=== PATIENT | male | born 1990 | race African-American/Black ===

== ENCOUNTER 2016-07-15 09:45 | Emergency (ER) | payer OTHER ==
[~2016-07-15] VITALS: Ht 180.3 cm; Wt 61.2 kg
[~2016-07-15 09:45] MED LIST: ALPR2TAB7 PO; CARI350T PO; HYDR-548 PO
--- NOTE | 2016-07-15 10:56 | NUR ---
Patient is resting comfortably on his own wheelchair, NAD, pending MD evaluation
--- NOTE | 2016-07-15 11:59 | NUR ---
Patient discharged to home in stable conditon. Written and verbal after care instructions given to patient. Patient verbalizes understanding of instructions.
== END 2016-07-15 12:03 | disposition home or self-care (01) ==
LOC: ER 09:45
DX: G89.29 Other chronic pain (principal); F41.9 Anxiety disorder, unspecified; F32.9 Major depressive disorder, single episode, unspecified; F10.20 Alcohol dependence, uncomplicated; Z93.3 Colostomy status; Z88.1 Allergy status to other antibiotic agents
CPT/HCPCS: A4663

== ENCOUNTER 2016-09-26 15:32 | Emergency (ER) | payer OTHER ==
[~2016-09-26] VITALS: Ht 180.3 cm; Wt 61.2 kg
--- NOTE | 2016-09-26 15:57 | NUR ---
AT BEDSIDE PERFORMING MSE
--- NOTE | 2016-09-26 16:01 | NUR ---
Patient discharged to home in stable conditon. Written and verbal after care instructions given. Prescription for SOMA provided per MD's order.Patient verbalizes understanding of instructions. No further questions or concerns noted prior on leaving the ED.
== END 2016-09-26 16:14 | disposition home or self-care (01) ==
LOC: ER 15:36
DX: Z76.0 Encounter for issue of repeat prescription (principal); F10.20 Alcohol dependence, uncomplicated; Z88.1 Allergy status to other antibiotic agents; Z93.3 Colostomy status
CPT/HCPCS: A4663

== ENCOUNTER 2017-04-08 15:12 | Inpatient (IN) | payer OTHER ==
[~2017-04-08] VITALS: Ht 180.3 cm; Wt 65.8 kg
[2017-04-08] MEDS ORDERED: GENTAMICIN SULFATE INJ 80 MG in IV DEXTROSE 5% 100 ML IV ONE (15:45)
[2017-04-08] MEDS ORDERED: IV NORMAL SALINE 1000 ML BAG IV ONE ×2 (15:45→17:45)
[2017-04-08] MEDS ORDERED: CEFTRIAXONE 1 G in IV DEXTROSE 5% 50 ML IV ONE (15:45)
[2017-04-08] MEDS ORDERED: DIPH50CA37 PO (16:30)
[2017-04-08] MEDS ORDERED: ZOLP10TA2 PO (16:30)
[2017-04-08] MEDS ORDERED: HYDR2TAB4 PO (16:30)
[2017-04-08 16:31] LABS: BASOPHILS % (AUTO) 0.1 % (0.0-2.0); HEMATOCRIT 34.2 % (36.7-47.1); HEMOGLOBIN 11.2 g/dL (12.5-16.3); LYMPHOCYTES # (AUTO) 1.1 K/uL (20.0-40.0); LYMPHOCYTES % (AUTO) 5.2 % (20.5-51.5); MEAN CORPUSCULAR HEMOGLOBIN 28.1 uug (23.8-33.4); MEAN CORPUSCULAR HGB CONC 33 g/dL (32.5-36.3); MEAN CORPUSCULAR VOLUME 86.1 fL (73.0-96.2); MONOCYTES # (AUTO) 2.5 K/uL (2.0-10.0); MONOCYTES % (AUTO) 11.7 % (0.0-11.0); NEUTROPHILS # (AUTO) 17.7 K/uL (1.8-8.9); PLATELET COUNT (AUTO) 591 K/uL (152-348); RED BLOOD CELL COUNT(AUTO) 3.98 MIL/uL (4.06-5.63); WHITE BLOOD COUNT (AUTO) 21.3 K/uL (3.6-10.2)
[2017-04-08 16:36] LABS: *BLOOD, URINE 2+ (NEGATIVE); *CLARITY,URINE CLOUDY (CLEAR); *COLOR,URINE AMBER (YELLOW); *KETONES,URINE TRACE (NEGATIVE); *PROTEIN,URINE 2+ (NEGATIVE); LEUKOCYTE ESTERASE ,URINE 3+ (NEGATIVE); NITRITE, URINE POSITIVE (NEGATIVE); UGLUCOSE NEGATIVE (NEGATIVE)
[2017-04-08 16:42] LABS: ALANINE AMINOTRANSFERASE 48 U/L (16-63); ALKALINE PHOSPHATASE 196 U/L (50-136); ASPARTATE AMINOTRANSFERASE 44 U/L (15-37); BILIRUBIN,DIRECT 0.4 mg/dL (0.0-0.2); BILIRUBIN,TOTAL 1.1 mg/dL (0.2-1.0); CARBON DIOXIDE 28 mmol/L (21-32); CHLORIDE 106 mmol/L (98-107); CREATININE 0.8 mg/dL (0.6-1.3); GLUCOSE 106 mg/dL (74-106); POTASSIUM 3.1 mmol/L (3.5-5.1); TOTAL PROTEIN, SERUM 8.2 g/dL (6.4-8.2); UREA NITROGEN, BLOOD 11 mg/dL (7-18)
[2017-04-08] MEDS ORDERED: GENTAMICIN SULFATE 80 MG/2 ML VIAL ONE (16:58)
[2017-04-08] MEDS ORDERED: CEFTRIAXONE 1 G VIAL ONE (16:58)
[2017-04-08] MEDS ORDERED: MORPHINE SULFATE 4 MG/1 ML DISP.SYRIN IV ONE (17:00)
[2017-04-08] MEDS ORDERED: MORPHINE SULFATE 4 MG/1 ML DISP.SYRIN ONE (17:08)
[2017-04-08 17:09] LABS: *BILIRUBIN,URIN 1+ (NEGATIVE)
[2017-04-08 17:12] LABS: BACTERIA,URINE MANY /HPF (NONE SEEN); MUCUS,URINE MODERATE /LPF (0-FEW); SQUAMOUS EPITHELIAL CELL,UR MODERATE /HPF (NONE SEEN); WBC,URINE 50-80 /HPF (0-3)
[2017-04-08 17:17] LABS: BAND % (MANUAL) 9 % (0-10); LYMPHOCYTES % (MANUAL) 8 % (20-40); MONOCYTES % (MANUAL) 12 % (2-10); NEUTROPHILS % (MANUAL) 71 % (42-75)
[2017-04-08] MEDS ORDERED: VANCOMYCIN IV 200 ML IV ONE (17:45)
[2017-04-08] MEDS ORDERED: ONDANSETRON 4 MG/2 ML VIAL IV PRN (17:45)
[2017-04-08] MEDS ORDERED: MEROPENEM 0.5 G in IV NORMAL SALINE 50 ML IV SCH (18:00)
[2017-04-08 18:18] VITALS: BP 109/61
[2017-04-08] MEDS ORDERED: IV NS 1000 ML 1,000 ML IV ONE (18:30)
[2017-04-08 19:00] VITALS: BP 107/32
[2017-04-08] MEDS ORDERED: MORPHINE SULFATE 2 MG/1 ML DISP.SYRIN IV PRN (20:30)
[2017-04-08] MEDS ORDERED: HYDROCODONE/APAP 10-325 MG TABLET PO PRN ×2 (20:45)
[2017-04-08] MEDS ORDERED: HYDROMORPHONE HCL 2 MG TABLET PO PRN (20:45)
[2017-04-08 21:09] LABS: ABG BASE EXCESS 2.9 mmol/L; ABG HCO3 25.3 mmol/L; ABG PCO2 30.7 mmHg (35.0-45.0); ABG PH 7.533 (7.350-7.450); ABG PO2 88.9 mmHg (75.0-100.0); ABG SITE LEFT BRACHIAL; ABG TOTAL HEMOGLOBIN 9.8 G/dL (13.5-18.0); COHb 1.7 % (0.5-1.5); O2Hb 95.3 % (94.0-97.0); VENT MODE ROOM AIR
[2017-04-08] MEDS: diphenhydrAMINE 50 MG CAPSULE PO PRN (21:15)
[2017-04-08] MEDS: MORPHINE SULFATE 4 MG/1 ML DISP.SYRIN IV PRN (21:15)
[2017-04-08] MEDS ORDERED: MEROPENEM 1 G in IV DEXTROSE 5% 50 ML IV SCH (22:00)
[2017-04-08] MEDS: MEROPENEM 0.5 G in IV NORMAL SALINE 50 ML IV SCH (22:18)
[2017-04-09] VITALS: BP 93/33
[2017-04-09] MEDS: CARISOPRODOL 350 MG TABLET PO SCH ×2 (00:18→04:23)
[2017-04-09] MEDS: ACETAMINOPHEN 325 MG TABLET PO PRN ×2 (00:25→23:42)
[2017-04-09] MEDS ORDERED: CARISOPRODOL 350 MG TABLET ONE ×2 (00:33→04:38)
[2017-04-09] MEDS: diphenhydrAMINE 50 MG CAPSULE PO PRN (03:27)
[2017-04-09] MEDS: MORPHINE SULFATE 4 MG/1 ML DISP.SYRIN IV PRN ×5 (03:27→22:18)
[2017-04-09] MEDS ORDERED: MORPHINE SULFATE 2 MG/1 ML DISP.SYRIN ONE (03:39)
[2017-04-09 04:00] VITALS: BP 95/31
[2017-04-09] MEDS: MEROPENEM 0.5 G in IV NORMAL SALINE 50 ML IV SCH ×3 (04:24→21:08)
[2017-04-09] MEDS: PANTOPRAZOLE SODIUM 40 MG VIAL IV SCH (09:36)
[2017-04-09 09:57] LABS: BASOPHILS % (AUTO) 0.1 % (0.0-2.0); EOSINOPHILS # (AUTO) 0.1 K/uL (0.0-0.7); EOSINOPHILS % (AUTO) 0.4 % (0.0-7.0); HEMOGLOBIN 8.5 g/dL (12.5-16.3); LYMPHOCYTES # (AUTO) 1.7 K/uL (20.0-40.0); LYMPHOCYTES % (AUTO) 8.8 % (20.5-51.5); MEAN CORPUSCULAR HGB CONC 33 g/dL (32.5-36.3); MEAN CORPUSCULAR VOLUME 85.5 fL (73.0-96.2); MONOCYTES # (AUTO) 2.2 K/uL (2.0-10.0); MONOCYTES % (AUTO) 11.7 % (0.0-11.0); NEUTROPHILS # (AUTO) 14.8 K/uL (1.8-8.9); PLATELET COUNT (AUTO) 438 K/uL (152-348); RED BLOOD CELL COUNT(AUTO) 3.04 MIL/uL (4.06-5.63); WHITE BLOOD COUNT (AUTO) 18.8 K/uL (3.6-10.2)
[2017-04-09 10:14] LABS: ALANINE AMINOTRANSFERASE 33 U/L (16-63); ALKALINE PHOSPHATASE 138 U/L (50-136); ASPARTATE AMINOTRANSFERASE 46 U/L (15-37); BILIRUBIN,TOTAL 0.7 mg/dL (0.2-1.0); CARBON DIOXIDE 27 mmol/L (21-32); CHLORIDE 111 mmol/L (98-107); CREATININE 0.4 mg/dL (0.6-1.3); GLUCOSE 94 mg/dL (74-106); POTASSIUM 3.6 mmol/L (3.5-5.1); TOTAL PROTEIN, SERUM 5.9 g/dL (6.4-8.2); UREA NITROGEN, BLOOD 10 mg/dL (7-18)
[2017-04-09 10:16] LABS: EOSINOPHILS % (MANUAL) 1 % (0-8); LYMPHOCYTES % (MANUAL) 10 % (20-40); MONOCYTES % (MANUAL) 10 % (2-10); NEUTROPHILS % (MANUAL) 79 % (42-75)
[2017-04-09] MEDS ORDERED: POTASSIUM CHLORIDE 20 MEQ TAB.PRT.SR PO ONE (10:30)
[2017-04-09] MEDS: POTASSIUM CHLORIDE 20 MEQ TAB.PRT.SR PO SCH ×2 (11:38→17:04)
[2017-04-09] MEDS: ALPRAZOLAM 0.5 MG TABLET PO PRN ×2 (12:37→18:58)
[2017-04-09 13:18] LABS: IRON, SERUM 6 ug/dL (50-175)
[2017-04-09 15:29] VITALS: BP 103/54
[2017-04-09 20:00] VITALS: BP 97/37
[2017-04-09 20:28] LABS: *OCCULT BLOOD STOOL POSITIVE (NEGATIVE)
[2017-04-09] MEDS: SODIUM HYPOCHLORITE 0.25% 480 ML BOTTLE TOP SCH (21:00)
[2017-04-09] MEDS: ZOLPIDEM 5 MG TABLET PO PRN (21:08)
[2017-04-09] MEDS: diphenhydrAMINE 50 MG/1 ML VIAL IV PRN (22:17)
[2017-04-09] MEDS ORDERED: diphenhydrAMINE 50 MG/1 ML VIAL ONE (22:21)
[2017-04-10] MEDS: MORPHINE SULFATE 4 MG/1 ML DISP.SYRIN IV PRN ×6 (01:46→23:21)
[2017-04-10 04:00] VITALS: BP 106/62
[2017-04-10] MEDS: MEROPENEM 0.5 G in IV NORMAL SALINE 50 ML IV SCH ×2 (04:06→12:33)
[2017-04-10] MEDS: diphenhydrAMINE 50 MG/1 ML VIAL IV PRN ×3 (06:11→20:04)
[2017-04-10] MEDS ORDERED: diphenhydrAMINE 50 MG/1 ML VIAL ONE (06:18)
[2017-04-10] MEDS ORDERED: MORPHINE SULFATE 2 MG/1 ML DISP.SYRIN ONE (06:19)
[2017-04-10 06:57] LABS: PHOSPHOROUS 1.9 mg/dL (2.5-4.9)
[2017-04-10 06:58] LABS: MAGNESIUM 1.4 mg/dL (1.8-2.4)
[2017-04-10 07:19] LABS: BASOPHILS % (AUTO) 0.2 % (0.0-2.0); EOSINOPHILS # (AUTO) 0.1 K/uL (0.0-0.7); EOSINOPHILS % (AUTO) 0.6 % (0.0-7.0); HEMATOCRIT 24.2 % (36.7-47.1); HEMOGLOBIN 7.8 g/dL (12.5-16.3); LYMPHOCYTES # (AUTO) 1.9 K/uL (20.0-40.0); LYMPHOCYTES % (AUTO) 12.9 % (20.5-51.5); MEAN CORPUSCULAR HEMOGLOBIN 27.7 uug (23.8-33.4); MEAN CORPUSCULAR HGB CONC 32 g/dL (32.5-36.3); MEAN CORPUSCULAR VOLUME 86.1 fL (73.0-96.2); MONOCYTES # (AUTO) 1.4 K/uL (2.0-10.0); MONOCYTES % (AUTO) 9.6 % (0.0-11.0); NEUTROPHILS % (AUTO) 76.7 % (38.5-71.5); PLATELET COUNT (AUTO) 416 K/uL (152-348); RED BLOOD CELL COUNT(AUTO) 2.81 MIL/uL (4.06-5.63); WHITE BLOOD COUNT (AUTO) 14.3 K/uL (3.6-10.2)
[2017-04-10] MEDS: SODIUM HYPOCHLORITE 0.25% 480 ML BOTTLE TOP SCH (09:00)
[2017-04-10] MEDS: PANTOPRAZOLE SODIUM 40 MG VIAL IV SCH (09:46)
[2017-04-10] MEDS: ALPRAZOLAM 0.5 MG TABLET PO PRN (09:47)
[2017-04-10] MEDS: CYCLOBENZAPRINE HCL 10 MG TABLET PO PRN (09:47)
[2017-04-10 11:20] VITALS: BP 96/33
[2017-04-10] MEDS: ACETAMINOPHEN 325 MG TABLET PO PRN ×2 (11:20→20:22)
[2017-04-10 15:22] VITALS: BP 105/28
[2017-04-10] MEDS ORDERED: NEUTRA PHOS PACKET PO ONE (15:45)
[2017-04-10] MEDS: MAGNESIUM SULFATE/D5W 100 ML IV SCH ×3 (16:55→22:52)
[2017-04-10] MEDS: HYDROMORPHONE HCL 2 MG TABLET PO PRN (17:33)
[2017-04-10] MEDS: ZOLPIDEM 5 MG TABLET PO PRN (20:06)
[2017-04-10] MEDS: CEFTRIAXONE 2 G in IV DEXTROSE 5% 100 ML IV SCH (20:22)
[2017-04-10 20:40] VITALS: BP 113/53
[2017-04-10] MEDS ORDERED: MAGNESIUM SULFATE/D5W 200 ML ONE (23:06)
[2017-04-11] MEDS: MAGNESIUM SULFATE/D5W 100 ML IV SCH (00:02)
[2017-04-11] MEDS: diphenhydrAMINE 50 MG/1 ML VIAL IV PRN ×3 (03:29→19:58)
[2017-04-11] MEDS: MORPHINE SULFATE 4 MG/1 ML DISP.SYRIN IV PRN ×6 (03:30→23:44)
[2017-04-11] MEDS ORDERED: MORPHINE SULFATE 4 MG/1 ML DISP.SYRIN ONE (03:35)
[2017-04-11] MEDS: PANTOPRAZOLE SODIUM 40 MG TABLET.DR PO SCH (06:34)
[2017-04-11 06:59] VITALS: BP 124/57
[2017-04-11] MEDS: ALPRAZOLAM 0.5 MG TABLET PO PRN ×2 (09:15→21:40)
[2017-04-11] MEDS: HYDROMORPHONE HCL 2 MG TABLET PO PRN ×2 (09:16→17:17)
[2017-04-11] MEDS: SODIUM HYPOCHLORITE 0.25% 480 ML BOTTLE TOP SCH (09:19)
[2017-04-11 11:30] LABS: BASOPHILS % (AUTO) 0.1 % (0.0-2.0); EOSINOPHILS # (AUTO) 0.1 K/uL (0.0-0.7); EOSINOPHILS % (AUTO) 1.3 % (0.0-7.0); HEMATOCRIT 25.2 % (36.7-47.1); HEMOGLOBIN 8.3 g/dL (12.5-16.3); LYMPHOCYTES # (AUTO) 1.6 K/uL (20.0-40.0); LYMPHOCYTES % (AUTO) 14.6 % (20.5-51.5); MEAN CORPUSCULAR HGB CONC 33 g/dL (32.5-36.3); MEAN CORPUSCULAR VOLUME 84.7 fL (73.0-96.2); MONOCYTES # (AUTO) 1.2 K/uL (2.0-10.0); MONOCYTES % (AUTO) 10.8 % (0.0-11.0); NEUTROPHILS # (AUTO) 8.2 K/uL (1.8-8.9); NEUTROPHILS % (AUTO) 73.2 % (38.5-71.5); PLATELET COUNT (AUTO) 449 K/uL (152-348); RED BLOOD CELL COUNT(AUTO) 2.97 MIL/uL (4.06-5.63); WHITE BLOOD COUNT (AUTO) 11.2 K/uL (3.6-10.2)
[2017-04-11 11:36] VITALS: BP 104/51
[2017-04-11 11:39] LABS: CARBON DIOXIDE 25 mmol/L (21-32); CHLORIDE 108 mmol/L (98-107); CREATININE 0.5 mg/dL (0.6-1.3); GLUCOSE 78 mg/dL (74-106); PHOSPHOROUS 2.4 mg/dL (2.5-4.9); UREA NITROGEN, BLOOD 5 mg/dL (7-18)
[2017-04-11] MEDS: CYCLOBENZAPRINE HCL 10 MG TABLET PO PRN ×2 (12:49→21:40)
[2017-04-11 16:00] VITALS: BP 107/30
[2017-04-11] MEDS ORDERED: NEUTRA PHOS PACKET PO ONE (16:30)
[2017-04-11] MEDS: CEFTRIAXONE 2 G in IV DEXTROSE 5% 100 ML IV SCH (19:44)
[2017-04-11 20:52] VITALS: BP 100/46
[2017-04-11] MEDS: ZOLPIDEM 5 MG TABLET PO PRN (21:41)
[2017-04-12] MEDS: diphenhydrAMINE 50 MG/1 ML VIAL IV PRN ×4 (02:17→20:15)
[2017-04-12] MEDS: MORPHINE SULFATE 4 MG/1 ML DISP.SYRIN IV PRN ×5 (03:55→20:16)
[2017-04-12] MEDS ORDERED: MORPHINE SULFATE 10 MG/1 ML DISP.SYRIN ONE (04:07)
[2017-04-12 04:46] VITALS: BP 116/45
[2017-04-12] MEDS: PANTOPRAZOLE SODIUM 40 MG TABLET.DR PO SCH (06:26)
[2017-04-12 07:29] LABS: CARBON DIOXIDE 28 mmol/L (21-32); CHLORIDE 102 mmol/L (98-107); CREATININE 0.5 mg/dL (0.6-1.3); GLUCOSE 93 mg/dL (74-106); PHOSPHOROUS 3.4 mg/dL (2.5-4.9); UREA NITROGEN, BLOOD 6 mg/dL (7-18)
[2017-04-12] MEDS: SODIUM HYPOCHLORITE 0.25% 480 ML BOTTLE TOP SCH (08:01)
[2017-04-12 11:01] VITALS: BP 116/54
[2017-04-12 13:33] LABS: BASOPHILS # (AUTO) 0.1 K/uL (0.0-8.0); BASOPHILS % (AUTO) 0.5 % (0.0-2.0); EOSINOPHILS # (AUTO) 0.2 K/uL (0.0-0.7); EOSINOPHILS % (AUTO) 1.6 % (0.0-7.0); HEMATOCRIT 25.7 % (36.7-47.1); HEMOGLOBIN 8.3 g/dL (12.5-16.3); LYMPHOCYTES % (AUTO) 19.4 % (20.5-51.5); MEAN CORPUSCULAR HEMOGLOBIN 27.7 uug (23.8-33.4); MEAN CORPUSCULAR HGB CONC 32 g/dL (32.5-36.3); MEAN CORPUSCULAR VOLUME 85.9 fL (73.0-96.2); MONOCYTES # (AUTO) 1.3 K/uL (2.0-10.0); MONOCYTES % (AUTO) 13.3 % (0.0-11.0); NEUTROPHILS # (AUTO) 6.6 K/uL (1.8-8.9); NEUTROPHILS % (AUTO) 65.2 % (38.5-71.5); PLATELET COUNT (AUTO) 576 K/uL (152-348); RED BLOOD CELL COUNT(AUTO) 2.99 MIL/uL (4.06-5.63); WHITE BLOOD COUNT (AUTO) 10.1 K/uL (3.6-10.2)
[2017-04-12] MEDS: ALPRAZOLAM 0.5 MG TABLET PO PRN (13:56)
[2017-04-12 14:06] LABS: EOSINOPHILS % (MANUAL) 4 % (0-8); LYMPHOCYTES % (MANUAL) 25 % (20-40); MONOCYTES % (MANUAL) 10 % (2-10); NEUTROPHILS % (MANUAL) 61 % (42-75)
[2017-04-12 15:08] VITALS: BP 113/51
[2017-04-12] MEDS: CYCLOBENZAPRINE HCL 10 MG TABLET PO PRN (18:58)
[2017-04-12 20:22] VITALS: BP 99/44
[2017-04-12] MEDS: CEFTRIAXONE 2 G in IV DEXTROSE 5% 100 ML IV SCH (20:27)
[2017-04-12] MEDS: ZOLPIDEM 5 MG TABLET PO PRN (21:28)
[2017-04-13] MEDS: MORPHINE SULFATE 4 MG/1 ML DISP.SYRIN IV PRN ×6 (00:08→21:31)
[2017-04-13 00:14] VITALS: BP 100/34
[2017-04-13] MEDS: diphenhydrAMINE 50 MG/1 ML VIAL IV PRN ×3 (02:12→14:01)
[2017-04-13 04:00] VITALS: BP 120/52
[2017-04-13] MEDS: PANTOPRAZOLE SODIUM 40 MG TABLET.DR PO SCH (06:34)
[2017-04-13 07:50] LABS: BASOPHILS % (AUTO) 0.3 % (0.0-2.0); EOSINOPHILS # (AUTO) 0.2 K/uL (0.0-0.7); EOSINOPHILS % (AUTO) 1.9 % (0.0-7.0); HEMATOCRIT 26.9 % (36.7-47.1); HEMOGLOBIN 8.9 g/dL (12.5-16.3); LYMPHOCYTES # (AUTO) 1.9 K/uL (20.0-40.0); MEAN CORPUSCULAR HEMOGLOBIN 28.3 uug (23.8-33.4); MEAN CORPUSCULAR HGB CONC 33 g/dL (32.5-36.3); MONOCYTES # (AUTO) 1.5 K/uL (2.0-10.0); MONOCYTES % (AUTO) 14.7 % (0.0-11.0); NEUTROPHILS # (AUTO) 6.7 K/uL (1.8-8.9); NEUTROPHILS % (AUTO) 65.1 % (38.5-71.5); PLATELET COUNT (AUTO) 613 K/uL (152-348); RED BLOOD CELL COUNT(AUTO) 3.16 MIL/uL (4.06-5.63); WHITE BLOOD COUNT (AUTO) 10.3 K/uL (3.6-10.2)
[2017-04-13 08:03] LABS: CARBON DIOXIDE 26 mmol/L (21-32); CHLORIDE 98 mmol/L (98-107); CREATININE 0.5 mg/dL (0.6-1.3); GLUCOSE 107 mg/dL (74-106); MAGNESIUM 1.8 mg/dL (1.8-2.4); PHOSPHOROUS 3.9 mg/dL (2.5-4.9); UREA NITROGEN, BLOOD 9 mg/dL (7-18)
[2017-04-13] MEDS: SODIUM HYPOCHLORITE 0.25% 480 ML BOTTLE TOP SCH (08:29)
[2017-04-13 09:11] LABS: EOSINOPHILS % (MANUAL) 3 % (0-8); LYMPHOCYTES % (MANUAL) 22 % (20-40); MONOCYTES % (MANUAL) 15 % (2-10); NEUTROPHILS % (MANUAL) 60 % (42-75)
[2017-04-13 11:08] VITALS: BP 112/59
[2017-04-13] MEDS ORDERED: CEFT2VIA14 IV (11:54)
[2017-04-13] MEDS ORDERED: MORPHINE SULFATE 4 MG/1 ML DISP.SYRIN IV STA (13:37)
[2017-04-13 15:16] VITALS: BP 102/42
[2017-04-13] MEDS: ALPRAZOLAM 0.5 MG TABLET PO PRN ×2 (15:30→22:48)
[2017-04-13 20:00] VITALS: BP 106/55
[2017-04-13] MEDS: CEFTRIAXONE 2 G in IV DEXTROSE 5% 100 ML IV SCH (21:30)
[2017-04-13] MEDS: ZOLPIDEM 5 MG TABLET PO PRN (21:53)
[2017-04-14] MEDS: MORPHINE SULFATE 4 MG/1 ML DISP.SYRIN IV PRN ×6 (01:25→21:22)
[2017-04-14] MEDS ORDERED: MORPHINE SULFATE 4 MG/1 ML DISP.SYRIN ONE (05:27)
[2017-04-14 05:40] VITALS: BP 108/54
[2017-04-14] MEDS: diphenhydrAMINE 50 MG/1 ML VIAL IV PRN ×4 (05:54→21:22)
[2017-04-14] MEDS: PANTOPRAZOLE SODIUM 40 MG TABLET.DR PO SCH (06:05)
[2017-04-14] MEDS: SODIUM HYPOCHLORITE 0.25% 480 ML BOTTLE TOP SCH (09:12)
[2017-04-14 11:34] VITALS: BP 128/80
[2017-04-14 12:04] VITALS: BP 112/50
[2017-04-14] MEDS: CYCLOBENZAPRINE HCL 10 MG TABLET PO PRN (15:30)
[2017-04-14] MEDS: ALPRAZOLAM 0.5 MG TABLET PO PRN (15:30)
[2017-04-14 16:10] VITALS: BP 99/46
[2017-04-14] MEDS: ACETAMINOPHEN 325 MG TABLET PO PRN (16:43)
[2017-04-14] MEDS: CEFTRIAXONE 2 G in IV DEXTROSE 5% 100 ML IV SCH (20:50)
[2017-04-14 20:54] VITALS: BP 129/54
[2017-04-14] MEDS: ZOLPIDEM 5 MG TABLET PO PRN (22:16)
[2017-04-15] MEDS: diphenhydrAMINE 50 MG/1 ML VIAL IV PRN ×6 (01:20→21:28)
[2017-04-15] MEDS: MORPHINE SULFATE 4 MG/1 ML DISP.SYRIN IV PRN ×6 (01:21→21:27)
[2017-04-15 04:00] VITALS: BP 102/48
[2017-04-15] MEDS ORDERED: MORPHINE SULFATE 4 MG/1 ML DISP.SYRIN ONE (05:48)
[2017-04-15] MEDS ORDERED: MORPHINE SULFATE 2 MG/1 ML DISP.SYRIN ONE (05:49)
[2017-04-15] MEDS: PANTOPRAZOLE SODIUM 40 MG TABLET.DR PO SCH (06:45)
[2017-04-15 07:09] LABS: BASOPHILS % (AUTO) 0.6 % (0.0-2.0); EOSINOPHILS # (AUTO) 0.4 K/uL (0.0-0.7); EOSINOPHILS % (AUTO) 5.5 % (0.0-7.0); HEMATOCRIT 25.8 % (36.7-47.1); HEMOGLOBIN 8.5 g/dL (12.5-16.3); LYMPHOCYTES % (AUTO) 25.5 % (20.5-51.5); MEAN CORPUSCULAR HEMOGLOBIN 28.2 uug (23.8-33.4); MEAN CORPUSCULAR HGB CONC 33 g/dL (32.5-36.3); MEAN CORPUSCULAR VOLUME 85.3 fL (73.0-96.2); MONOCYTES % (AUTO) 13.3 % (0.0-11.0); NEUTROPHILS # (AUTO) 4.2 K/uL (1.8-8.9); NEUTROPHILS % (AUTO) 55.1 % (38.5-71.5); PLATELET COUNT (AUTO) 776 K/uL (152-348); RED BLOOD CELL COUNT(AUTO) 3.02 MIL/uL (4.06-5.63); WHITE BLOOD COUNT (AUTO) 7.7 K/uL (3.6-10.2)
[2017-04-15 07:33] LABS: ALANINE AMINOTRANSFERASE 19 U/L (16-63); ALKALINE PHOSPHATASE 111 U/L (50-136); ASPARTATE AMINOTRANSFERASE 20 U/L (15-37); BILIRUBIN,TOTAL 0.3 mg/dL (0.2-1.0); CARBON DIOXIDE 28 mmol/L (21-32); CHLORIDE 98 mmol/L (98-107); CREATININE 0.5 mg/dL (0.6-1.3); GLUCOSE 96 mg/dL (74-106); PHOSPHOROUS 3.5 mg/dL (2.5-4.9); POTASSIUM 4.5 mmol/L (3.5-5.1); TOTAL PROTEIN, SERUM 7.9 g/dL (6.4-8.2); UREA NITROGEN, BLOOD 10 mg/dL (7-18)
[2017-04-15] MEDS: SODIUM HYPOCHLORITE 0.25% 480 ML BOTTLE TOP SCH (09:34)
[2017-04-15 11:53] VITALS: BP 119/61
[2017-04-15 12:33] LABS: BAND % (MANUAL) 4 % (0-10); EOSINOPHILS % (MANUAL) 7 % (0-8); LYMPHOCYTES % (MANUAL) 23 % (20-40); MONOCYTES % (MANUAL) 10 % (2-10); NEUTROPHILS % (MANUAL) 56 % (42-75)
[2017-04-15] MEDS: CYCLOBENZAPRINE HCL 10 MG TABLET PO PRN (15:09)
[2017-04-15] MEDS: ALPRAZOLAM 0.5 MG TABLET PO PRN (15:10)
[2017-04-15 15:57] VITALS: BP 107/75
[2017-04-15] MEDS: CEFTRIAXONE 2 G in IV DEXTROSE 5% 100 ML IV SCH (20:19)
[2017-04-15] MEDS: ZOLPIDEM 5 MG TABLET PO PRN (22:38)
[2017-04-16] MEDS: diphenhydrAMINE 50 MG/1 ML VIAL IV PRN ×4 (01:27→13:40)
[2017-04-16] MEDS: MORPHINE SULFATE 4 MG/1 ML DISP.SYRIN IV PRN ×4 (01:30→13:41)
[2017-04-16] MEDS ORDERED: MORPHINE SULFATE 4 MG/1 ML DISP.SYRIN ONE (06:22)
[2017-04-16] MEDS: PANTOPRAZOLE SODIUM 40 MG TABLET.DR PO SCH (07:00)
[2017-04-16 08:00] VITALS: BP 109/60
[2017-04-16] MEDS: SODIUM HYPOCHLORITE 0.25% 480 ML BOTTLE TOP SCH (09:34)
[2017-04-16 11:48] VITALS: BP 114/68
[2017-04-16] MEDS ORDERED: diphenhydrAMINE 50 MG/1 ML VIAL IV PRN (12:45)
[2017-04-16] MEDS ORDERED: MORPHINE SULFATE 4 MG/1 ML DISP.SYRIN IM PRN (12:45)
== END 2017-04-16 14:00 | disposition short-term general hospital (02) | DRG 466 ==
LOC: ER 15:13 → TELE 17:51 → MED 04-09 13:25
PROVIDERS: ADMIT Internal Medicine; ATTEND Internal Medicine
PROC: 05H533Z Insertion of Infusion Device into Right Subclavian Vein, Percutaneous Approach (ICD-10-PCS; principal; 2017-04-13)
DX: T83.510A Infection and inflammatory reaction due to cystostomy catheter, initial encounter (principal); A41.9 Sepsis, unspecified organism; E43 Unspecified severe protein-calorie malnutrition; L89.324 Pressure ulcer of left buttock, stage 4; L89.319 Pressure ulcer of right buttock, unspecified stage; D68.59 Other primary thrombophilia; E87.2 Acidosis; N39.0 Urinary tract infection, site not specified; Y73.1 Therapeutic (nonsurgical) and rehabilitative gastroenterology and urology devices associated with adverse incidents; Y92.89 Other specified places as the place of occurrence of the external cause; Z93.3 Colostomy status; S36.99 Other injury of unspecified intra-abdominal organ; W34.00XS Accidental discharge from unspecified firearms or gun, sequela; Z87.440 Personal history of urinary (tract) infections; Z87.01 Personal history of pneumonia (recurrent); L08.9 Local infection of the skin and subcutaneous tissue, unspecified; Z96.649 Presence of unspecified artificial hip joint; G89.4 Chronic pain syndrome; G47.00 Insomnia, unspecified; F32.9 Major depressive disorder, single episode, unspecified; F17.210 Nicotine dependence, cigarettes, uncomplicated; F41.9 Anxiety disorder, unspecified; Z68.20 Body mass index [BMI] 20.0-20.9, adult; F11.20 Opioid dependence, uncomplicated; K80.20 Calculus of gallbladder without cholecystitis without obstruction; N13.30 Unspecified hydronephrosis; Z90.49 Acquired absence of other specified parts of digestive tract; Z88.1 Allergy status to other antibiotic agents; N31.9 Neuromuscular dysfunction of bladder, unspecified; M86.68 Other chronic osteomyelitis, other site; M89.8X6 Other specified disorders of bone, lower leg; Z95.828 Presence of other vascular implants and grafts; D47.3 Essential (hemorrhagic) thrombocythemia; I25.2 Old myocardial infarction; N36.0 Urethral fistula; G82.20 Paraplegia, unspecified
CPT/HCPCS: 36415; 36600; 70030-TC; 71010; 83550; 83605; 83735; 84100; 85025; 85610; 85730; 87040; 87077; 87086; 93005; 93307; A4217; A4663; C1758; C9113; J0696; J1200; J1580; J2185; J2270; J2405; J3475; J3490; J7030; J7060; Q0163

== ENCOUNTER 2017-05-03 16:30 | Inpatient (IN) | payer OTHER ==
[~2017-05-03] VITALS: Ht 180.3 cm; Wt 62.3 kg
[~2017-05-03 16:30] MED LIST changes: +CEFT2VIA14 IV; +DIPH50CA37 PO; +HYDR2TAB4 PO; +ZOLP10TA2 PO
[2017-05-03] MEDS ORDERED: CEFTRIAXONE 1 G in IV DEXTROSE 5% 50 ML IV ONE (16:45)
[2017-05-03] MEDS ORDERED: IV NORMAL SALINE 1000 ML BAG IV ONE (16:45)
[2017-05-03] MEDS ORDERED: CEFTRIAXONE 1 G VIAL ONE (17:30)
[2017-05-03 17:58] LABS: CARBON DIOXIDE 29 mmol/L (21-32); CHLORIDE 97 mmol/L (98-107); CREATININE 0.5 mg/dL (0.6-1.3); GLUCOSE 117 mg/dL (74-106); POTASSIUM 3.6 mmol/L (3.5-5.1); UREA NITROGEN, BLOOD 10 mg/dL (7-18)
[2017-05-03 17:59] LABS: BASOPHILS % (AUTO) 0.4 % (0.0-2.0); EOSINOPHILS # (AUTO) 0.3 K/uL (0.0-0.7); HEMATOCRIT 34.2 % (36.7-47.1); HEMOGLOBIN 10.9 g/dL (12.5-16.3); LYMPHOCYTES # (AUTO) 1.6 K/uL (20.0-40.0); LYMPHOCYTES % (AUTO) 13.9 % (20.5-51.5); MEAN CORPUSCULAR HEMOGLOBIN 26.8 uug (23.8-33.4); MEAN CORPUSCULAR HGB CONC 32 g/dL (32.5-36.3); MEAN CORPUSCULAR VOLUME 84.4 fL (73.0-96.2); MONOCYTES # (AUTO) 0.9 K/uL (2.0-10.0); NEUTROPHILS # (AUTO) 8.5 K/uL (1.8-8.9); NEUTROPHILS % (AUTO) 74.7 % (38.5-71.5); RED BLOOD CELL COUNT(AUTO) 4.06 MIL/uL (4.06-5.63); WHITE BLOOD COUNT (AUTO) 11.3 K/uL (3.6-10.2)
[2017-05-03] MEDS ORDERED: IOHEXOL 300MG/ML 100 ML INFUS..BTL ONE (17:59)
[2017-05-03 18:11] LABS: ALANINE AMINOTRANSFERASE 9 U/L (16-63); ALKALINE PHOSPHATASE 185 U/L (50-136); ASPARTATE AMINOTRANSFERASE 11 U/L (15-37); BILIRUBIN,DIRECT 0.1 mg/dL (0.0-0.2); BILIRUBIN,TOTAL 0.2 mg/dL (0.2-1.0); TOTAL PROTEIN, SERUM 9.9 g/dL (6.4-8.2)
[2017-05-03 18:12] LABS: *BILIRUBIN,URIN 2+ (NEGATIVE); *BLOOD, URINE 2+ (NEGATIVE); *CLARITY,URINE CLOUDY (CLEAR); *COLOR,URINE YELLOW (YELLOW); *KETONES,URINE TRACE (NEGATIVE); *PROTEIN,URINE 2+ (NEGATIVE); LEUKOCYTE ESTERASE ,URINE 1+ (NEGATIVE); NITRITE, URINE POSITIVE (NEGATIVE); UGLUCOSE NEGATIVE (NEGATIVE)
[2017-05-03 18:21] LABS: BACTERIA,URINE MANY /HPF (NONE SEEN); SQUAMOUS EPITHELIAL CELL,UR FEW /HPF (NONE SEEN); WBC,URINE 50-80 /HPF (0-3)
[2017-05-03 18:26] LABS: PLATELET COUNT (AUTO) 1134 K/uL (152-348)
[2017-05-03] MEDS ORDERED: diphenhydrAMINE 25 MG CAP PO ONE (18:30)
[2017-05-03] MEDS ORDERED: HYDROMORPHONE 1 MG/1 ML DISP.SYRIN IV ONE (18:30)
[2017-05-03 18:33] LABS: EOSINOPHILS % (MANUAL) 4 % (0-8); LYMPHOCYTES % (MANUAL) 14 % (20-40); MONOCYTES % (MANUAL) 8 % (2-10); NEUTROPHILS % (MANUAL) 74 % (42-75)
--- NOTE | 2017-05-03 20:04 | NUR ---
PT ALERT AWAKE IN ROOM IN NO ACUTE DISTRESS ADMITTED INTO [facility]. ABLE TO FOLLOW SIMPLE COMMANDS. SUPRAPUBIC CATHETER IN PLACE. STATES PAIN TO CATHETER SITE. AWAITING MD ORDERS. CALL LIGHT PLACED WITHIN REACH. CONTINUE TO MONITOR.
--- NOTE | 2017-05-03 20:16 | NUR ---
Pt. admitted to [facility], under care of Sultana Bo (LISA). Belongs List completed
[2017-05-03 20:30] VITALS: BP 120/76
[2017-05-03] MEDS ORDERED: IBUPROFEN 600 MG TABLET PO PRN (21:30)
[2017-05-03] MEDS ORDERED: ACETAMINOPHEN 325 MG TABLET PO PRN (21:30)
[2017-05-03] MEDS ORDERED: diphenhydrAMINE 25 MG CAP PO PRN (21:30)
[2017-05-03] MEDS ORDERED: ENOXAPARIN SODIUM 40 MG/0.4 ML DISP.SYRIN SQ SCH (21:30)
[2017-05-03] MEDS ORDERED: Z GUARD REMEDY PASTE 57 GM TUBE TOP PRN (21:30)
[2017-05-03] MEDS ORDERED: ONDANSETRON 4 MG/2 ML VIAL IV PRN (21:30)
[2017-05-03] MEDS ORDERED: MAGNESIUM HYDROXIDE 30 ML LIQUID UDC PO PRN (21:30)
--- NOTE | 2017-05-03 21:30 | NUR ---
ORDERS RECEIVED NOT TO CALL INVOICE MACHINE OPERATOR PHYSICIAN REGARDING IV PAIN MEDICATIONS PER MD. PT MADE AWARE OF PRN NORCO ON HAND AVAILABLE.
[2017-05-03] MEDS ORDERED: CARISOPRODOL 350 MG TABLET ONE (23:37)
[2017-05-03] MEDS ORDERED: ZOLPIDEM 5 MG TABLET ONE (23:38)
[2017-05-03] MEDS ORDERED: MEROPENEM 1 G VIAL IV ONE (23:48)
[2017-05-04] MEDS: ZOLPIDEM 5 MG TABLET PO PRN ×2 (00:12→21:28)
[2017-05-04] MEDS: CARISOPRODOL 350 MG TABLET PO SCH ×6 (00:13→23:15)
--- NOTE | 2017-05-04 01:00 | NUR ---
PT TO START ON IV ANTIBIOTIC MERREM AND FLUIDS 0.9% NS AT 75ML/HR. STATES HE WANTS TO WAIT FOR MD IN THE DAY TO ASK FOR PAIN MEDICATION BECAUSE NORCO WILL BE INEFFECTIVE. PT REFUSED TO HAVE PICTURE TAKEN TO SACRAL AREA AND STATES HE WANTS TO HAVE A PAIN MEDICATION FIRST IF WE TAKE A PICTURE. STATES HE HAS PAIN IF MOVING AROUND TOO MUCH. ABLE TO HAVE PICTURE ONLY TO SUPRAPUBIC AREA. CONTINUE TO MONITOR.
[2017-05-04] MEDS: IV NS 1000 ML 1,000 ML IV PRN (01:45)
[2017-05-04] MEDS: MEROPENEM 1 G in IV NORMAL SALINE 100 ML IV SCH ×4 (02:00→22:30)
[2017-05-04 04:00] VITALS: BP 133/74
[2017-05-04] MEDS ORDERED: MEROPENEM 1 G VIAL IV ONE (04:25)
[2017-05-04 09:54] LABS: BASOPHILS % (AUTO) 0.2 % (0.0-2.0); EOSINOPHILS # (AUTO) 0.5 K/uL (0.0-0.7); EOSINOPHILS % (AUTO) 5.4 % (0.0-7.0); LYMPHOCYTES # (AUTO) 2.3 K/uL (20.0-40.0); LYMPHOCYTES % (AUTO) 25.1 % (20.5-51.5); MEAN CORPUSCULAR HEMOGLOBIN 27.6 uug (23.8-33.4); MEAN CORPUSCULAR HGB CONC 33 g/dL (32.5-36.3); MEAN CORPUSCULAR VOLUME 84.4 fL (73.0-96.2); MONOCYTES # (AUTO) 0.7 K/uL (2.0-10.0); MONOCYTES % (AUTO) 8.1 % (0.0-11.0); NEUTROPHILS # (AUTO) 5.7 K/uL (1.8-8.9); NEUTROPHILS % (AUTO) 61.2 % (38.5-71.5); PLATELET COUNT (AUTO) 892 K/uL (152-348); WHITE BLOOD COUNT (AUTO) 9.3 K/uL (3.6-10.2)
[2017-05-04 10:06] LABS: HEMATOCRIT 28.7 % (36.7-47.1); HEMOGLOBIN 9.4 g/dL (12.5-16.3)
[2017-05-04 10:16] LABS: CARBON DIOXIDE 27 mmol/L (21-32); CHLORIDE 104 mmol/L (98-107); CREATININE 0.6 mg/dL (0.6-1.3); GLUCOSE 155 mg/dL (74-106); MAGNESIUM 1.6 mg/dL (1.8-2.4); POTASSIUM 3.3 mmol/L (3.5-5.1); UREA NITROGEN, BLOOD 8 mg/dL (7-18)
[2017-05-04 11:13] VITALS: BP 122/54
[2017-05-04] MEDS ORDERED: POTASSIUM CHLORIDE 20 MEQ TAB.PRT.SR PO ONE (11:45)
[2017-05-04] MEDS: HYDROCODONE/APAP 5-325MG TABLET PO PRN ×3 (12:58→21:27)
[2017-05-04 19:00] VITALS: BP 121/73
[2017-05-04] MEDS: ENOXAPARIN SODIUM 40 MG/0.4 ML DISP.SYRIN SQ SCH (20:42)
--- NOTE | 2017-05-04 20:45 | NUR ---
RECEIVED PT AWAKE IN BED, HE'S ALERT AND ORIENTED C/O PT BUT REFUSES NORCO STATING THAT NORCO DOESN'T WORK FOR HIM. NOTIFIED MD, NO NEW ORDERS WERE GIVEN. PT'S SUPRABUPIC SITE SUTURES OPEN, WITH NO SIGNS OF INFECTION, BLEDING, REDNESS OR DRAINAGE NOTED. MD NOTIFIED WITH NEW ORDERS TO CHANGE DRESSING PRN PER A.M NURSE, AND WOUND CONSULT ORDER
--- NOTE | 2017-05-05 | NUR ---
PT IS AWAKE IN BED WITH NO SIGNS OR SYMPTOMS OF PAIN OR DISTRESS, OFFERED TO CHANGE DRESSING TO SUPRABUPIC SUTURE SITE, PT DECLINED. PT STATES HE WILL CHANGE DRESSING HIMSELF, SUPPLIES LEFT WITH PT. NO FURHET CHANGES WILL CONTINUE TO MONITOR PT
[2017-05-05] MEDS: CARISOPRODOL 350 MG TABLET PO SCH ×5 (03:35→21:43)
[2017-05-05 05:16] VITALS: BP 115/53
[2017-05-05] MEDS: IV NS 1000 ML 1,000 ML IV PRN (06:16)
[2017-05-05] MEDS: MEROPENEM 1 G in IV NORMAL SALINE 100 ML IV SCH ×2 (06:16→15:16)
--- NOTE | 2017-05-05 06:46 | NUR ---
PT'S IV SITE LEAKING, IV FLUIDS AND ANTIBIOTICS STOPPED, PT DECLINED FOR NEW LINE TO BE RESTARTED STATING THAT HE WANTS IT STARTED LATER. CHARGE NURSE AWARE
[2017-05-05] MEDS: HYDROCODONE/APAP 5-325MG TABLET PO PRN ×4 (08:57→21:43)
[2017-05-05 11:10] VITALS: BP 102/54
[2017-05-05] MEDS: ASPIRIN EC 81 MG TABLET.DR PO SCH (12:00)
[2017-05-05 15:25] VITALS: BP 114/57
[2017-05-05] MEDS ORDERED: FOSFOMYCIN TROMETHAMINE 3 GM PACKET PO ONE (19:30)
--- NOTE | 2017-05-05 19:35 | NUR ---
PT RECEIVED IN BED, AWAKE. A/OX4. ABLE TO MAKE NEEDS KNOWN. V/S STABLE. IN NO ACUTE DISTRESS. NO C/O PAIN AT THIS TIME. IVF INFUSING. ON RA, TOLERATING WELL. AFEBRILE. ON 1ST STEP MATTRESS. PT DRESSING C/D/I ON SACRAL/COCCYX AREA. DRESSING ON SUPRAPUBIC CATHETER C/D/I. COLOSTOMY BAG INTACT AND PATENT. PT ISOLATION IN PLACE. SAFETY MEASURES IMPLEMENTED. CALL LIGHT WITHIN REACH.
[2017-05-05 20:00] VITALS: BP 108/51
[2017-05-05] MEDS: MUPIROCIN 2% OINT 22 GM TUBE NS SCH (21:44)
[2017-05-05] MEDS: ZOLPIDEM 5 MG TABLET PO PRN (21:44)
[2017-05-05] MEDS: ENOXAPARIN SODIUM 40 MG/0.4 ML DISP.SYRIN SQ SCH (21:44)
[2017-05-05] MEDS: PIPERACILLIN/TAZOBACTAM/D5W 3.375 G in PREMIXED 1 EACH IV SCH (21:45)
[2017-05-06] MEDS: HYDROCODONE/APAP 5-325MG TABLET PO PRN ×4 (01:34→14:46)
[2017-05-06] MEDS: CARISOPRODOL 350 MG TABLET PO SCH ×5 (01:35→16:35)
[2017-05-06 06:01] VITALS: BP 115/55
[2017-05-06] MEDS: PIPERACILLIN/TAZOBACTAM/D5W 3.375 G in PREMIXED 1 EACH IV SCH ×2 (06:07→14:40)
--- NOTE | 2017-05-06 07:00 | NUR ---
RECEIVED PATIENT AWAKE, ALERT AND ORIENTED. NO SOB, DISTRESS OR ANY DISCOMFORTS AT THIS TIME. ALL NEEDS WERE ATTENDED AND ANTICIPATED. CALL LIGHT PLACED WITHIN REACH.
--- NOTE | 2017-05-06 07:18 | NUR ---
END OF SHIFT NOTES. PT SLEPT WELL THROUGHOUT SHIFT. IN STABLE CONDITION. PAIN MANAGED. IVF INFUSING. IV ABX INFUSED. DRESSINGS C/D/I. SUPRAPUBIC CATH INTACT AND PATENT. SX SITE SHOWS SOME REDNESS AND SUTURE SEPARATION. COLOSTOMY BAG INTACT AND PATENT. ALL NEEDS ATTENDED. SAFETY MAINTAINED. CALL LIGHT WITHIN REACH.
--- NOTE | 2017-05-06 09:40 | NUR ---
ALL DUE MEDICATIONS WERE GIVEN, ALL WERE TOLERATED WELL. WOUND CARE TREATMENT DONE. PATIENT TOLERATED WELL THE PROCEDURE. WILL CONTINUE TO MONITOR. ALL NEEDS WERE ATTENDED AND ANTICIPATED. ENCOURAGED PATIENT TO USE CALL LIGHT WHENEVER ASSISTANCE IS NEEDED. NOTED PATIENT'S COLOSTOMY BAG IS INTACT. OFFERED PATIENT TO CHANGE THE BAG BUT PATIENT REFUSED. NOTED SUPRAPUBIC CATHETER IS INTACT WITH CLEAR YELLOW COLORED URINE, NO SEDIMENTS.
[2017-05-06] MEDS: ASPIRIN EC 81 MG TABLET.DR PO SCH (10:23)
[2017-05-06] MEDS: MUPIROCIN 2% OINT 22 GM TUBE NS SCH (10:23)
[2017-05-06 11:07] VITALS: BP 106/53
[2017-05-06 11:26] LABS: EOSINOPHILS # (AUTO) 0.4 K/uL (0.0-0.7); MONOCYTES # (AUTO) 0.5 K/uL (2.0-10.0)
[2017-05-06 11:39] LABS: BASOPHILS % (AUTO) 0.3 % (0.0-2.0); EOSINOPHILS % (AUTO) 6.7 % (0.0-7.0); HEMATOCRIT 28.6 % (36.7-47.1); HEMOGLOBIN 9.1 g/dL (12.5-16.3); LYMPHOCYTES # (AUTO) 1.7 K/uL (20.0-40.0); LYMPHOCYTES % (AUTO) 28.2 % (20.5-51.5); MEAN CORPUSCULAR HEMOGLOBIN 27.2 uug (23.8-33.4); MEAN CORPUSCULAR HGB CONC 32 g/dL (32.5-36.3); MONOCYTES % (AUTO) 8.3 % (0.0-11.0); NEUTROPHILS # (AUTO) 3.5 K/uL (1.8-8.9); NEUTROPHILS % (AUTO) 56.5 % (38.5-71.5); PLATELET COUNT (AUTO) 744 K/uL (152-348); RED BLOOD CELL COUNT(AUTO) 3.36 MIL/uL (4.06-5.63)
[2017-05-06 11:41] LABS: WHITE BLOOD COUNT (AUTO) 6.1 K/uL (3.6-10.2)
[2017-05-06 12:57] LABS: ALANINE AMINOTRANSFERASE 9 U/L (16-63); ALKALINE PHOSPHATASE 124 U/L (50-136); ASPARTATE AMINOTRANSFERASE < 5 U/L (15-37); BILIRUBIN,TOTAL 0.2 mg/dL (0.2-1.0); CARBON DIOXIDE 27 mmol/L (21-32); CHLORIDE 105 mmol/L (98-107); CREATININE 0.5 mg/dL (0.6-1.3); GLUCOSE 88 mg/dL (74-106); MAGNESIUM 1.7 mg/dL (1.8-2.4); PHOSPHOROUS 2.5 mg/dL (2.5-4.9); POTASSIUM 4.2 mmol/L (3.5-5.1); TOTAL PROTEIN, SERUM 7.8 g/dL (6.4-8.2); UREA NITROGEN, BLOOD 6 mg/dL (7-18)
--- NOTE | 2017-05-06 13:00 | NUR ---
PATIENT NOTED RESTING ON HIS BED ON A SEMI- REYES'S POSITION, ALL HIS NEEDS WERE ATTENDED AND ANTICIPATED. ENCOURAGED PATIENT TO USE CALL LIGHT WHENEVER ASSISTANCE IS NEEDED.
[2017-05-06 15:06] VITALS: BP 108/60
--- NOTE | 2017-05-06 17:00 | NUR ---
PATIENT LEFT AWOL
== END 2017-05-06 17:00 | disposition left against medical advice (07) | DRG 720 ==
LOC: ER 16:32 → MED 20:10
PROVIDERS: ATTEND Nurse Practitioner Acute Care
DX: A41.9 Sepsis, unspecified organism (principal); E43 Unspecified severe protein-calorie malnutrition; L89.154 Pressure ulcer of sacral region, stage 4; D68.59 Other primary thrombophilia; G82.20 Paraplegia, unspecified; F11.20 Opioid dependence, uncomplicated; L89.324 Pressure ulcer of left buttock, stage 4; L89.314 Pressure ulcer of right buttock, stage 4; E83.51 Hypocalcemia; N31.9 Neuromuscular dysfunction of bladder, unspecified; B96.20 Unspecified Escherichia coli [E. coli] as the cause of diseases classified elsewhere; B95.2 Enterococcus as the cause of diseases classified elsewhere; M86.68 Other chronic osteomyelitis, other site; T14.90XS Injury, unspecified, sequela; W34.00XS Accidental discharge from unspecified firearms or gun, sequela; Z93.3 Colostomy status; G89.4 Chronic pain syndrome; Z22.322 Carrier or suspected carrier of Methicillin resistant Staphylococcus aureus; T81.83XD Persistent postprocedural fistula, subsequent encounter; N28.89 Other specified disorders of kidney and ureter; Y73.8 Miscellaneous gastroenterology and urology devices associated with adverse incidents, not elsewhere classified; M16.11 Unilateral primary osteoarthritis, right hip; Z74.09 Other reduced mobility; K80.20 Calculus of gallbladder without cholecystitis without obstruction; N39.0 Urinary tract infection, site not specified; Z93.6 Other artificial openings of urinary tract status; D64.9 Anemia, unspecified; Z68.1 Body mass index [BMI] 19.9 or less, adult; D47.3 Essential (hemorrhagic) thrombocythemia; F17.210 Nicotine dependence, cigarettes, uncomplicated; F32.9 Major depressive disorder, single episode, unspecified; F41.9 Anxiety disorder, unspecified; G47.00 Insomnia, unspecified; I25.2 Old myocardial infarction; Z88.1 Allergy status to other antibiotic agents; Z91.19 Patient's noncompliance with other medical treatment and regimen; Z90.49 Acquired absence of other specified parts of digestive tract; Z87.440 Personal history of urinary (tract) infections; Z87.01 Personal history of pneumonia (recurrent); Z86.19 Personal history of other infectious and parasitic diseases; Z76.5 Malingerer [conscious simulation]; T81.31XA Disruption of external operation (surgical) wound, not elsewhere classified, initial encounter
CPT/HCPCS: 36415; 70030-TC; 83605; 83735; 84100; 85025; 85730; 86140; 87040; 87077; 87086; 93005; A4217; A4663; J0696; J1170; J1650; J2185; J2543; J3490; J7030; Q0163; Q9967

== ENCOUNTER 2017-05-06 18:39 | Emergency (ER) | payer OTHER ==
[~2017-05-06] VITALS: Ht 180.3 cm; Wt 65.8 kg
--- NOTE | 2017-05-06 19:45 | NUR ---
PATIENT REFUSED TO BE SEEN MY ERMD. STATING "I WOULD RATHER GO HOME THEN BE SEEN AGAIN."
--- NOTE | 2017-05-06 19:45 | NUR ---
IV removed. Catheter intact and site benign. Pressure and 4x4 gauze applied to site. No bleeding noted.
== END 2017-05-06 19:46 | disposition left against medical advice (07) ==
LOC: ER 18:39
DX: Z53.21 Procedure and treatment not carried out due to patient leaving prior to being seen by health care provider (principal)
CPT/HCPCS: A4663

== ENCOUNTER 2018-05-04 16:38 | Inpatient (IN) | payer OTHER ==
[~2018-05-04] VITALS: Ht 175.3 cm; Wt 57.2 kg
[~2018-05-04 16:38] MED LIST changes: -CEFT2VIA14 IV; -DIPH50CA37 PO; -HYDR-548 PO; -HYDR2TAB4 PO
[2018-05-04] MEDS ORDERED: HYDROMORPHONE 1 MG/1 ML DISP.SYRIN IV ONE ×2 (17:15→21:15)
[2018-05-04] MEDS ORDERED: ACETAMINOPHEN ES 500 MG TABLET PO ONE (17:15)
[2018-05-04] MEDS ORDERED: LEVOFLOXACIN 750MG/D5W 150 ML IV ONE ×2 (17:15→18:08)
[2018-05-04] MEDS ORDERED: IV NORMAL SALINE 1000 ML BAG IV ONE (17:15)
[2018-05-04] MEDS ORDERED: CEFEPIME HCL 1 G in IV DEXTROSE 5% 50 ML IV ONE (17:15)
[2018-05-04] MEDS ORDERED: ONDANSETRON 4 MG/2 ML VIAL IV ONE (17:15)
[2018-05-04] MEDS ORDERED: ACETAMINOPHEN ES 500 MG TABLET ONE (17:25)
[2018-05-04] MEDS ORDERED: HYDROMORPHONE 2 MG/1 ML DISP.SYRIN ONE ×2 (17:25→21:12)
[2018-05-04] MEDS ORDERED: ONDANSETRON 4 MG/2 ML VIAL ONE (17:25)
[2018-05-04] MEDS ORDERED: diphenhydrAMINE 50 MG/1 ML VIAL ONE ×2 (17:41→21:56)
[2018-05-04] MEDS ORDERED: diphenhydrAMINE 50 MG/1 ML VIAL IV ONE ×2 (17:45→22:00)
[2018-05-04 17:51] LABS: BASOPHILS % (AUTO) 0.1 % (0.0-2.0); EOSINOPHILS % (AUTO) 0.1 % (0.0-7.0); HEMATOCRIT 31.2 % (36.7-47.1); HEMOGLOBIN 9.9 g/dL (12.5-16.3); LYMPHOCYTES # (AUTO) 1.7 K/uL (20.0-40.0); LYMPHOCYTES % (AUTO) 10.9 % (20.5-51.5); MEAN CORPUSCULAR HGB CONC 32 g/dL (32.5-36.3); MEAN CORPUSCULAR VOLUME 91.1 fL (73.0-96.2); MONOCYTES # (AUTO) 1.1 K/uL (2.0-10.0); NEUTROPHILS # (AUTO) 12.6 K/uL (1.8-8.9); NEUTROPHILS % (AUTO) 81.9 % (38.5-71.5); PLATELET COUNT (AUTO) 757 K/uL (152-348); RED BLOOD CELL COUNT(AUTO) 3.43 MIL/uL (4.06-5.63); WHITE BLOOD COUNT (AUTO) 15.4 K/uL (3.6-10.2)
[2018-05-04 17:53] LABS: *BILIRUBIN,URIN NEGATIVE (NEGATIVE); *BLOOD, URINE Trace-intact (NEGATIVE); *CLARITY,URINE SLIGHTLY CLOUDY (CLEAR); *COLOR,URINE YELLOW (YELLOW); *KETONES,URINE NEGATIVE (NEGATIVE); *UROBILINOGEN,URINE 0.2 E.U./dl (NORMAL); LEUKOCYTE ESTERASE ,URINE 2+ (NEGATIVE); NITRITE, URINE NEGATIVE (NEGATIVE); PH,URINE 7.5 (5.0-8.0); UGLUCOSE NEGATIVE (NEGATIVE)
[2018-05-04 18:00] LABS: POTASSIUM 2.8 mmol/L (3.5-5.1)
[2018-05-04 18:02] LABS: BILIRUBIN,DIRECT 0.1 mg/dL (0.0-0.2); BILIRUBIN,TOTAL 0.3 mg/dL (0.2-1.0)
[2018-05-04] MEDS ORDERED: CEFAZOLIN 1 G VIAL ONE (18:08)
[2018-05-04] MEDS ORDERED: POTASSIUM CHLORIDE 20 MEQ TAB.PRT.SR PO ONE (18:15)
[2018-05-04 18:17] LABS: BACTERIA,URINE MANY /HPF (NONE SEEN); RBC,URINE 0-3 /HPF (0-3); WBC,URINE 20-50 /HPF (0-3)
[2018-05-04 18:18] LABS: SQUAMOUS EPITHELIAL CELL,UR FEW /HPF (NONE SEEN)
[2018-05-04] MEDS ORDERED: POTASSIUM CHLORIDE 20 MEQ TAB.PRT.SR ONE (18:20)
[2018-05-05] MEDS ORDERED: Z GUARD REMEDY PASTE 57 GM TUBE TOP PRN (01:00)
[2018-05-05] MEDS ORDERED: MAGNESIUM HYDROXIDE 30 ML LIQUID UDC PO PRN (01:00)
[2018-05-05] MEDS ORDERED: ACETAMINOPHEN 325 MG TABLET PO PRN (01:00)
[2018-05-05 02:35] VITALS: BP 119/63
[2018-05-05] MEDS ORDERED: ENOXAPARIN SODIUM 40 MG/0.4 ML DISP.SYRIN SQ ONE (02:45)
[2018-05-05] MEDS: ALPRAZOLAM 0.5 MG TABLET PO PRN ×4 (03:10→22:52)
[2018-05-05] MEDS: HYDROCODONE/APAP 5-325MG TABLET PO PRN ×4 (03:11→20:27)
[2018-05-05] MEDS: IV NS 1000 ML 1,000 ML IV PRN (03:15)
[2018-05-05 03:45] VITALS: BP 118/68
[2018-05-05] MEDS ORDERED: CARISOPRODOL 350 MG TABLET PO SCH (04:00)
[2018-05-05] MEDS ORDERED: CEFEPIME HCL 1 G VIAL ONE (05:58)
[2018-05-05] MEDS: CEFEPIME HCL 1 G in IV DEXTROSE 5% 50 ML IV SCH ×3 (06:14→22:55)
[2018-05-05] MEDS: PANTOPRAZOLE SODIUM 40 MG TABLET.DR PO SCH (06:17)
[2018-05-05 07:51] LABS: BASOPHILS % (AUTO) 0.1 % (0.0-2.0); EOSINOPHILS % (AUTO) 0.2 % (0.0-7.0); HEMATOCRIT 26.2 % (36.7-47.1); HEMOGLOBIN 8.6 g/dL (12.5-16.3); LYMPHOCYTES # (AUTO) 2.1 K/uL (20.0-40.0); LYMPHOCYTES % (AUTO) 18.9 % (20.5-51.5); MEAN CORPUSCULAR HEMOGLOBIN 30.3 uug (23.8-33.4); MEAN CORPUSCULAR HGB CONC 33 g/dL (32.5-36.3); MEAN CORPUSCULAR VOLUME 92.2 fL (73.0-96.2); MONOCYTES # (AUTO) 0.7 K/uL (2.0-10.0); MONOCYTES % (AUTO) 6.2 % (0.0-11.0); NEUTROPHILS # (AUTO) 8.2 K/uL (1.8-8.9); NEUTROPHILS % (AUTO) 74.6 % (38.5-71.5); PLATELET COUNT (AUTO) 562 K/uL (152-348); RED BLOOD CELL COUNT(AUTO) 2.84 MIL/uL (4.06-5.63); WHITE BLOOD COUNT (AUTO) 10.9 K/uL (3.6-10.2)
[2018-05-05 08:07] LABS: MAGNESIUM 1.4 mg/dL (1.8-2.4); PHOSPHOROUS 1.5 mg/dL (2.5-4.9); POTASSIUM 3.4 mmol/L (3.5-5.1)
[2018-05-05 11:13] VITALS: BP 102/46
[2018-05-05] MEDS ORDERED: POTASSIUM CHLORIDE 20 MEQ TAB.PRT.SR PO ONE (13:15)
[2018-05-05] MEDS: MAGNESIUM SULFATE/D5W 100 ML IV SCH ×2 (13:59→14:58)
[2018-05-05 15:05] VITALS: BP 106/54
[2018-05-05] MEDS ORDERED: NEUTRA PHOS PACKET PO ONE (16:15)
[2018-05-05 19:25] VITALS: BP 101/47
[2018-05-05] MEDS: ENOXAPARIN SODIUM 40 MG/0.4 ML DISP.SYRIN SQ SCH (20:34)
[2018-05-05] MEDS ORDERED: THERAHONEY GEL 1.5 OZ TUBE TOP SCH (21:00)
[2018-05-05] MEDS ORDERED: SODIUM HYPOCHLORITE 0.125% 473 ML BOTTLE TP SCH (21:00)
[2018-05-05] MEDS: SODIUM HYPOCHLORITE 0.125% 473 ML BOTTLE TP SCH (21:00)
[2018-05-05] MEDS: THERAHONEY GEL 1.5 OZ TUBE TOP SCH (21:00)
[2018-05-05] MEDS: ZOLPIDEM 5 MG TABLET PO PRN (22:52)
[2018-05-06] MEDS: HYDROCODONE/APAP 5-325MG TABLET PO PRN ×4 (02:33→22:27)
[2018-05-06 03:47] VITALS: BP 117/81
[2018-05-06] MEDS: ALPRAZOLAM 0.5 MG TABLET PO PRN ×4 (05:00→20:44)
[2018-05-06] MEDS: CEFEPIME HCL 1 G in IV DEXTROSE 5% 50 ML IV SCH ×2 (05:00→14:55)
[2018-05-06] MEDS: CARISOPRODOL 350 MG TABLET PO PRN ×4 (05:07→20:43)
[2018-05-06] MEDS: ONDANSETRON 4 MG/2 ML VIAL IV PRN ×2 (05:33→10:53)
[2018-05-06] MEDS: PANTOPRAZOLE SODIUM 40 MG TABLET.DR PO SCH (06:07)
[2018-05-06] MEDS ORDERED: ALPRAZOLAM 0.5 MG TABLET ONE (06:19)
[2018-05-06 08:00] VITALS: BP 117/53
[2018-05-06 08:32] LABS: BASOPHILS # (AUTO) 0.1 K/uL (0.0-8.0); BASOPHILS % (AUTO) 0.7 % (0.0-2.0); CARBON DIOXIDE 20 mmol/L (21-32); CHLORIDE 111 mmol/L (98-107); CHOLESTEROL 52 mg/dL (<200); CREATININE 0.7 mg/dL (0.6-1.3); EOSINOPHILS % (AUTO) 0.2 % (0.0-7.0); GLUCOSE 102 mg/dL (74-106); HDL CHOLESTEROL 37 mg/dL (40-60); HEMATOCRIT 25.4 % (36.7-47.1); HEMOGLOBIN 8.1 g/dL (12.5-16.3); LYMPHOCYTES # (AUTO) 1.7 K/uL (20.0-40.0); LYMPHOCYTES % (AUTO) 14.2 % (20.5-51.5); MAGNESIUM 1.8 mg/dL (1.8-2.4); MEAN CORPUSCULAR HEMOGLOBIN 29.8 uug (23.8-33.4); MEAN CORPUSCULAR HGB CONC 32 g/dL (32.5-36.3); MEAN CORPUSCULAR VOLUME 93.5 fL (73.0-96.2); MONOCYTES # (AUTO) 0.9 K/uL (2.0-10.0); MONOCYTES % (AUTO) 7.8 % (0.0-11.0); NEUTROPHILS # (AUTO) 9.2 K/uL (1.8-8.9); NEUTROPHILS % (AUTO) 77.1 % (38.5-71.5); PHOSPHOROUS 1.1 mg/dL (2.5-4.9); PLATELET COUNT (AUTO) 601 K/uL (152-348); POTASSIUM 3.9 mmol/L (3.5-5.1); RED BLOOD CELL COUNT(AUTO) 2.72 MIL/uL (4.06-5.63); TRIGLYCERIDES 27 MG/DL (30-150); UREA NITROGEN, BLOOD 11 mg/dL (7-18)
[2018-05-06] MEDS: ASCORBIC ACID 500 MG TABLET PO SCH ×3 (09:00→18:39)
[2018-05-06] MEDS: MULTIVIT, IRON, MIN NO. 8, FA TABLET PO SCH (09:00)
[2018-05-06] MEDS: ZINC SULFATE 220 MG CAPSULE PO SCH (09:00)
[2018-05-06 09:28] LABS: THYROID STIMULATING HORMONE 0.228 mIU/mL (0.358-3.740)
[2018-05-06] MEDS: IV NS 1000 ML 1,000 ML IV PRN ×2 (11:31→21:48)
[2018-05-06 12:00] VITALS: BP 117/53
[2018-05-06] MEDS: SODIUM HYPOCHLORITE 0.125% 473 ML BOTTLE TP SCH ×2 (12:12→20:58)
[2018-05-06] MEDS: THERAHONEY GEL 1.5 OZ TUBE TOP SCH ×2 (12:13→20:59)
[2018-05-06] MEDS ORDERED: HYDROMORPHONE 1 MG/1 ML DISP.SYRIN IV ONE (14:41)
[2018-05-06] MEDS ORDERED: diphenhydrAMINE 50 MG/1 ML VIAL IV ONE (14:42)
[2018-05-06 16:00] VITALS: BP 100/44
[2018-05-06 20:09] VITALS: BP 114/58
[2018-05-06] MEDS: ZOLPIDEM 5 MG TABLET PO PRN (20:43)
[2018-05-06] MEDS: ENOXAPARIN SODIUM 40 MG/0.4 ML DISP.SYRIN SQ SCH (20:46)
[2018-05-06] MEDS: MEROPENEM 0.5 G in IV NORMAL SALINE 50 ML IV SCH (22:09)
[2018-05-06] MEDS: POTASSIUM PHOSPHATE MM 7.5 MMOL in IV DEXTROSE 5% 100 ML IV SCH (22:14)
[2018-05-07] MEDS: POTASSIUM PHOSPHATE MM 7.5 MMOL in IV DEXTROSE 5% 100 ML IV SCH (01:12)
[2018-05-07] MEDS ORDERED: HYDROCODONE/APAP 10-325 MG TABLET PO ONE (01:30)
[2018-05-07] MEDS: ALPRAZOLAM 0.5 MG TABLET PO PRN ×4 (02:49→21:10)
[2018-05-07] MEDS: CARISOPRODOL 350 MG TABLET PO PRN ×4 (02:49→21:10)
[2018-05-07] MEDS: HYDROCODONE/APAP 5-325MG TABLET PO PRN ×5 (04:46→20:47)
[2018-05-07 05:21] VITALS: BP 113/54
[2018-05-07] MEDS: PANTOPRAZOLE SODIUM 40 MG TABLET.DR PO SCH (06:05)
[2018-05-07] MEDS: MEROPENEM 0.5 G in IV NORMAL SALINE 50 ML IV SCH ×3 (06:05→21:31)
[2018-05-07] MEDS: MULTIVIT, IRON, MIN NO. 8, FA TABLET PO SCH (08:54)
[2018-05-07] MEDS: ASCORBIC ACID 500 MG TABLET PO SCH ×2 (08:54→16:24)
[2018-05-07] MEDS: ZINC SULFATE 220 MG CAPSULE PO SCH (08:54)
[2018-05-07] MEDS: SODIUM HYPOCHLORITE 0.125% 473 ML BOTTLE TP SCH ×2 (08:59→21:09)
[2018-05-07] MEDS: THERAHONEY GEL 1.5 OZ TUBE TOP SCH ×2 (09:00→21:02)
[2018-05-07 10:57] VITALS: BP 100/52
[2018-05-07] MEDS ORDERED: ACET325T53 PO (14:01)
[2018-05-07] MEDS ORDERED: MENT71OI TOP (14:01)
[2018-05-07] MEDS ORDERED: SODI473S8 TP (14:01)
[2018-05-07] MEDS ORDERED: MERO500V IV (14:01)
[2018-05-07] MEDS: IV NS 1000 ML 1,000 ML IV PRN (14:11)
[2018-05-07 14:55] LABS: BASOPHILS % (AUTO) 0.3 % (0.0-2.0); EOSINOPHILS # (AUTO) 0.1 K/uL (0.0-0.7); EOSINOPHILS % (AUTO) 0.9 % (0.0-7.0); HEMATOCRIT 25.8 % (36.7-47.1); HEMOGLOBIN 8.4 g/dL (12.5-16.3); LYMPHOCYTES % (AUTO) 19.8 % (20.5-51.5); MEAN CORPUSCULAR HEMOGLOBIN 30.6 uug (23.8-33.4); MEAN CORPUSCULAR HGB CONC 33 g/dL (32.5-36.3); MEAN CORPUSCULAR VOLUME 93.8 fL (73.0-96.2); MONOCYTES # (AUTO) 0.6 K/uL (2.0-10.0); MONOCYTES % (AUTO) 6.3 % (0.0-11.0); NEUTROPHILS # (AUTO) 7.4 K/uL (1.8-8.9); NEUTROPHILS % (AUTO) 72.7 % (38.5-71.5); PLATELET COUNT (AUTO) 645 K/uL (152-348); RED BLOOD CELL COUNT(AUTO) 2.75 MIL/uL (4.06-5.63); WHITE BLOOD COUNT (AUTO) 10.2 K/uL (3.6-10.2)
[2018-05-07 15:04] LABS: CARBON DIOXIDE 17 mmol/L (21-32); CHLORIDE 112 mmol/L (98-107); CREATININE 0.7 mg/dL (0.6-1.3); GLUCOSE 131 mg/dL (74-106); POTASSIUM 3.6 mmol/L (3.5-5.1); UREA NITROGEN, BLOOD 9 mg/dL (7-18)
[2018-05-07 15:39] VITALS: BP 110/55
[2018-05-07] MEDS ORDERED: diphenhydrAMINE 50 MG/1 ML VIAL IV ONE (17:30)
[2018-05-07] MEDS: ZOLPIDEM 5 MG TABLET PO PRN (20:48)
[2018-05-07] MEDS: ENOXAPARIN SODIUM 40 MG/0.4 ML DISP.SYRIN SQ SCH (20:52)
[2018-05-07 21:06] VITALS: BP 118/62
[2018-05-07] MEDS: diphenhydrAMINE 50 MG/1 ML VIAL IV PRN (21:26)
[2018-05-08] MEDS: CARISOPRODOL 350 MG TABLET PO PRN ×4 (03:28→22:34)
[2018-05-08] MEDS: HYDROCODONE/APAP 5-325MG TABLET PO PRN ×5 (03:29→21:28)
[2018-05-08] MEDS: ALPRAZOLAM 0.5 MG TABLET PO PRN ×4 (03:29→22:35)
[2018-05-08] MEDS: ZOLPIDEM 5 MG TABLET PO PRN ×2 (03:30→21:28)
[2018-05-08] MEDS: diphenhydrAMINE 50 MG/1 ML VIAL IV PRN ×4 (03:30→22:34)
[2018-05-08 05:25] VITALS: BP 112/50
[2018-05-08] MEDS: PANTOPRAZOLE SODIUM 40 MG TABLET.DR PO SCH (06:05)
[2018-05-08] MEDS: MEROPENEM 0.5 G in IV NORMAL SALINE 50 ML IV SCH (06:06)
[2018-05-08] MEDS: IV NS 1000 ML 1,000 ML IV PRN (08:16)
[2018-05-08] MEDS: ZINC SULFATE 220 MG CAPSULE PO SCH (08:17)
[2018-05-08] MEDS: ASCORBIC ACID 500 MG TABLET PO SCH ×2 (08:17→16:04)
[2018-05-08] MEDS: MULTIVIT, IRON, MIN NO. 8, FA TABLET PO SCH (08:17)
[2018-05-08] MEDS: SODIUM HYPOCHLORITE 0.125% 473 ML BOTTLE TP SCH ×2 (09:03→22:43)
[2018-05-08] MEDS: THERAHONEY GEL 1.5 OZ TUBE TOP SCH ×2 (09:03→22:42)
[2018-05-08] MEDS: ONDANSETRON 4 MG/2 ML VIAL IV PRN (10:17)
[2018-05-08 11:15] VITALS: BP 108/52
[2018-05-08] MEDS: CEphaleXIN 500 MG CAPSULE PO SCH ×2 (13:37→21:25)
[2018-05-08 15:27] VITALS: BP 119/60
[2018-05-08 20:35] VITALS: BP 103/43
[2018-05-08] MEDS: ENOXAPARIN SODIUM 40 MG/0.4 ML DISP.SYRIN SQ SCH (21:27)
[2018-05-09] MEDS: IV NS 1000 ML 1,000 ML IV PRN (01:37)
[2018-05-09] MEDS: HYDROCODONE/APAP 5-325MG TABLET PO PRN ×2 (01:38→05:46)
[2018-05-09] MEDS: CARISOPRODOL 350 MG TABLET PO PRN ×2 (04:47→10:35)
[2018-05-09] MEDS: ALPRAZOLAM 0.5 MG TABLET PO PRN ×2 (04:47→10:35)
[2018-05-09] MEDS: CEphaleXIN 500 MG CAPSULE PO SCH (05:46)
[2018-05-09 05:56] VITALS: BP 110/43
[2018-05-09] MEDS ORDERED: HYDROCODONE/APAP 5-325MG TABLET PO SCH (06:00)
[2018-05-09] MEDS: THERAHONEY GEL 1.5 OZ TUBE TOP SCH (06:03)
[2018-05-09] MEDS: SODIUM HYPOCHLORITE 0.125% 473 ML BOTTLE TP SCH (06:04)
[2018-05-09 06:39] LABS: BASOPHILS % (AUTO) 0.5 % (0.0-2.0); EOSINOPHILS # (AUTO) 0.1 K/uL (0.0-0.7); EOSINOPHILS % (AUTO) 0.7 % (0.0-7.0); HEMATOCRIT 26.6 % (36.7-47.1); HEMOGLOBIN 8.8 g/dL (12.5-16.3); LYMPHOCYTES % (AUTO) 21.7 % (20.5-51.5); MEAN CORPUSCULAR HEMOGLOBIN 31.1 uug (23.8-33.4); MEAN CORPUSCULAR HGB CONC 33 g/dL (32.5-36.3); MEAN CORPUSCULAR VOLUME 93.8 fL (73.0-96.2); MONOCYTES # (AUTO) 0.9 K/uL (2.0-10.0); MONOCYTES % (AUTO) 9.3 % (0.0-11.0); NEUTROPHILS # (AUTO) 6.2 K/uL (1.8-8.9); NEUTROPHILS % (AUTO) 67.8 % (38.5-71.5); PLATELET COUNT (AUTO) 613 K/uL (152-348); RED BLOOD CELL COUNT(AUTO) 2.84 MIL/uL (4.06-5.63); WHITE BLOOD COUNT (AUTO) 9.1 K/uL (3.6-10.2)
[2018-05-09] MEDS: PANTOPRAZOLE SODIUM 40 MG TABLET.DR PO SCH (06:40)
[2018-05-09 06:46] LABS: CARBON DIOXIDE 24 mmol/L (21-32); CHLORIDE 113 mmol/L (98-107); CREATININE 0.7 mg/dL (0.6-1.3); GLUCOSE 86 mg/dL (74-106); MAGNESIUM 1.5 mg/dL (1.8-2.4); PHOSPHOROUS 1.6 mg/dL (2.5-4.9); POTASSIUM 3.6 mmol/L (3.5-5.1); UREA NITROGEN, BLOOD 8 mg/dL (7-18)
[2018-05-09] MEDS: MULTIVIT, IRON, MIN NO. 8, FA TABLET PO SCH (08:44)
[2018-05-09] MEDS: ASCORBIC ACID 500 MG TABLET PO SCH (08:44)
[2018-05-09] MEDS: ZINC SULFATE 220 MG CAPSULE PO SCH (08:44)
[2018-05-09] MEDS: diphenhydrAMINE 50 MG/1 ML VIAL IV PRN (10:44)
[2018-05-09] MEDS ORDERED: NEUTRA PHOS PACKET PO ONE (16:00)
== END 2018-05-09 11:30 | disposition home health service (06) | DRG 720 ==
LOC: ER 16:42 → TELE 05-05 02:22 → MED 05-05 05:49
PROVIDERS: ATTEND Nurse Practitioner Acute Care
PROC: 05HY33Z Insertion of Infusion Device into Upper Vein, Percutaneous Approach (ICD-10-PCS; principal; 2018-05-05)
DX: A41.9 Sepsis, unspecified organism (principal); E43 Unspecified severe protein-calorie malnutrition; L89.154 Pressure ulcer of sacral region, stage 4; D68.59 Other primary thrombophilia; G82.20 Paraplegia, unspecified; E83.51 Hypocalcemia; L89.324 Pressure ulcer of left buttock, stage 4; L89.314 Pressure ulcer of right buttock, stage 4; D47.3 Essential (hemorrhagic) thrombocythemia; T14.8XXS Other injury of unspecified body region, sequela; N39.0 Urinary tract infection, site not specified; N31.9 Neuromuscular dysfunction of bladder, unspecified; Z93.59 Other cystostomy status; L08.9 Local infection of the skin and subcutaneous tissue, unspecified; B96.20 Unspecified Escherichia coli [E. coli] as the cause of diseases classified elsewhere; Z16.11 Resistance to penicillins; Z16.29 Resistance to other single specified antibiotic; Z16.23 Resistance to quinolones and fluoroquinolones; Z86.14 Personal history of Methicillin resistant Staphylococcus aureus infection; Z93.3 Colostomy status; Z91.19 Patient's noncompliance with other medical treatment and regimen; Z90.49 Acquired absence of other specified parts of digestive tract; Z87.440 Personal history of urinary (tract) infections; Z87.01 Personal history of pneumonia (recurrent); K80.20 Calculus of gallbladder without cholecystitis without obstruction; N36.0 Urethral fistula; G89.4 Chronic pain syndrome; G47.00 Insomnia, unspecified; Z74.09 Other reduced mobility; Z68.1 Body mass index [BMI] 19.9 or less, adult; D53.9 Nutritional anemia, unspecified; Z88.1 Allergy status to other antibiotic agents; R11.2 Nausea with vomiting, unspecified; F32.9 Major depressive disorder, single episode, unspecified; M86.9 Osteomyelitis, unspecified; Z95.828 Presence of other vascular implants and grafts; F41.9 Anxiety disorder, unspecified; E87.6 Hypokalemia; W34.00XS Accidental discharge from unspecified firearms or gun, sequela
CPT/HCPCS: 36415; 36569; 70030-TC; 71045; 74018; 83605; 83735; 84100; 84443; 85025; 85730; 87040; 87070; 87077; 87086; 93005; A4217; A4663; A9150; G0378; J0690; J0692; J1170; J1200; J1650; J1956; J2185; J2405; J3475; J3490; J7030; J7060

== ENCOUNTER 2018-12-06 18:46 | Emergency (ER) | payer OTHER ==
[~2018-12-06] VITALS: Ht 170.2 cm; Wt 59.0 kg
[~2018-12-06 18:46] MED LIST changes: +ACET325T53 PO; +MENT71OI TOP; +MERO500V IV; +SODI473S8 TP
--- NOTE | 2018-12-06 19:06 | NUR ---
Patient wheelchair bound does not need assitance with mobility. Speech is clear, speaks in complete sentences. A/Ox4. No neuro deficits. Patient came for c/o nephrostomy malfunction. Respiratory even and unlabored, no cough no sob. No cardiovascular distress noted.
--- NOTE | 2018-12-06 19:15 | NUR ---
Per ERMD, he gave verbal order to flush the nephrostomy to ensure patency of the tube.
--- NOTE | 2018-12-06 20:13 | NUR ---
Patient discharged to home in stable conditon. Written and verbal after care instructions given. Patient verbalizes understanding of instructions. Patient wheelchair bound, was able to wheel himself out in stable condition.
[2018-12-06 20:25] VITALS: BP 131/79
== END 2018-12-06 20:27 | disposition home or self-care (01) ==
LOC: ER 18:55
DX: T83.9XXA Unspecified complication of genitourinary prosthetic device, implant and graft, initial encounter (principal); Z88.1 Allergy status to other antibiotic agents; Z79.899 Other long term (current) drug therapy; Z93.3 Colostomy status
CPT/HCPCS: A4663

== ENCOUNTER 2018-12-13 11:20 | Emergency (ER) | payer OTHER ==
[~2018-12-13] VITALS: Ht 170.2 cm; Wt 54.4 kg
--- NOTE | 2018-12-13 11:20 | NUR ---
Arash hyde in [facility] - 12/13/18 at 1143 by SUHAS Patient seen by
--- NOTE | 2018-12-13 11:30 | NUR ---
SYDNEE VIZCAINO AT BEDSIDE FOR MSE.
--- NOTE | 2018-12-13 11:37 | NUR ---
PT REQUESTING COUPLE OF COLOSTOMY BAGS FOR HIS NEPHROSTOMY AND COLOSTOMY BECAUSE HIS SUPPLY WAS STOLEN. PT REFUSING MEDICAL EXAMINATION BY ER .
[2018-12-13] MEDS ORDERED: CEFTRIAXONE 1 G VIAL ONE (11:58)
[2018-12-13] MEDS ORDERED: LIDOCAINE HCL 1% 20 ML VIAL ONE (11:59)
[2018-12-13] MEDS ORDERED: CEFTRIAXONE 1 G VIAL IM ONE (12:00)
--- NOTE | 2018-12-13 12:07 | NUR ---
Patient discharged to home in stable conditon. Written and verbal after care instructions given. Patient verbalizes understanding of instructions. ALL BELONGINGS W/ PT. PT WHEELED HIMSELF OUT OF W/O DIFFICULTY.
[2018-12-13 12:09] VITALS: BP 127/55
== END 2018-12-13 12:10 | disposition home or self-care (01) ==
LOC: ER 11:20
DX: N39.0 Urinary tract infection, site not specified (principal); K94.00 Colostomy complication, unspecified; Z79.899 Other long term (current) drug therapy; Z88.1 Allergy status to other antibiotic agents
CPT/HCPCS: 87077; 87086; 87186; 96372; 99283; J0696; J3490

== ENCOUNTER 2019-05-01 10:26 | Inpatient (IN) | payer OTHER ==
[~2019-05-01] VITALS: Ht 180.3 cm; Wt 64.0 kg
[~2019-05-01 10:26] MED LIST changes: -MERO500V IV; +MERO500V21 IV
--- NOTE | 2019-05-01 11:00 | NUR ---
Dr Enriquez at the bedside for MSE.
[2019-05-01] MEDS ORDERED: ONDANSETRON 4 MG/2 ML VIAL IV ONE (11:30)
[2019-05-01] MEDS ORDERED: HYDROMORPHONE 1 MG/1 ML DISP.SYRIN IV ONE ×2 (11:30→14:30)
[2019-05-01] MEDS ORDERED: IV NORMAL SALINE 1000 ML BAG IV ONE ×2 (11:30→13:30)
[2019-05-01 11:48] LABS: BASOPHILS # (AUTO) 0.1 K/uL (0.0-8.0); BASOPHILS % (AUTO) 0.2 % (0.0-2.0); HEMATOCRIT 24.1 % (36.7-47.1); LYMPHOCYTES # (AUTO) 1.6 K/uL (20.0-40.0); LYMPHOCYTES % (AUTO) 5.4 % (20.5-51.5); MEAN CORPUSCULAR HEMOGLOBIN 22.3 uug (23.8-33.4); MEAN CORPUSCULAR HGB CONC 30 g/dL (32.5-36.3); MEAN CORPUSCULAR VOLUME 75.2 fL (73.0-96.2); MONOCYTES # (AUTO) 1.2 K/uL (2.0-10.0); MONOCYTES % (AUTO) 4.2 % (0.0-11.0); NEUTROPHILS # (AUTO) 26.1 K/uL (1.8-8.9); NEUTROPHILS % (AUTO) 90.2 % (38.5-71.5); PLATELET COUNT (AUTO) 966 K/uL (152-348)
[2019-05-01 11:49] LABS: HEMOGLOBIN 7.1 g/dL (12.5-16.3)
[2019-05-01 11:50] LABS: *BLOOD, URINE 3+ (NEGATIVE); *CLARITY,URINE CLOUDY (CLEAR); *COLOR,URINE DARK YELLOW (YELLOW); PH,URINE 6.5 (5.0-8.0); UGLUCOSE NEGATIVE (NEGATIVE)
[2019-05-01 11:51] LABS: *BILIRUBIN,URIN NEGATIVE (NEGATIVE); *KETONES,URINE NEGATIVE (NEGATIVE); *UROBILINOGEN,URINE 0.2 E.U./dl (NORMAL); NITRITE, URINE NEGATIVE (NEGATIVE)
[2019-05-01 11:52] LABS: CREATININE 1.1 mg/dL (0.6-1.3); POTASSIUM 3.9 mmol/L (3.5-5.1)
[2019-05-01 11:52] LABS: LEUKOCYTE ESTERASE ,URINE 3+ (NEGATIVE)
[2019-05-01] MEDS ORDERED: IOHEXOL 300MG/ML 100 ML INFUS..BTL ONE (11:54)
[2019-05-01] MEDS ORDERED: IV NORMAL SALINE 250 ML IV ONE (11:54)
[2019-05-01] MEDS ORDERED: SWABABLE VALVE TRANSFER SET EA MC ONE (11:54)
[2019-05-01 11:57] LABS: BACTERIA,URINE 3+ /HPF (NONE SEEN); RBC,URINE TNTC /HPF (0-3); WBC,URINE TNTC /HPF (0-3)
[2019-05-01 11:58] LABS: BILIRUBIN,DIRECT 0.2 mg/dL (0.0-0.2); BILIRUBIN,TOTAL 0.4 mg/dL (0.2-1.0); TOTAL PROTEIN, SERUM 7.7 g/dL (6.4-8.2)
[2019-05-01] MEDS ORDERED: PERCOCET PO (12:14)
[2019-05-01] MEDS ORDERED: METH10TA2 PO (12:14)
--- NOTE | 2019-05-01 12:14 | NUR ---
LIST OF MEDICATIONS PER PT'S RECOLLECTION.
[2019-05-01] MEDS ORDERED: PIPERACILLIN SODIUM/TAZOBACTAM 3.375 G in IV DEXTROSE 5% 50 ML IV ONE (12:15)
[2019-05-01] MEDS ORDERED: diphenhydrAMINE 50 MG/1 ML VIAL ONE (12:21)
[2019-05-01] MEDS ORDERED: PIPERACILLIN/TAZOBACTAM/D5W 50 ML IV ONE (12:22)
[2019-05-01] MEDS ORDERED: diphenhydrAMINE 50 MG/1 ML VIAL IV ONE (12:30)
[2019-05-01] MEDS ORDERED: diphenhydrAMINE 25 MG CAP PO ONE ×2 (14:30→14:48)
[2019-05-01] MEDS ORDERED: HYDROMORPHONE 1 MG/1 ML DISP.SYRIN ONE (14:49)
--- NOTE | 2019-05-01 16:20 | NUR ---
RECEIVED PATIENT FROM ER. PATIENT TRANSFERRED FROM [facility] TO [facility]. NO ACUTE DISTRESS NOTED. PATIENT ALERT AND ORIENTED X4. PATIENT IS A FUNCTIONAL PARAPLEGIC. PATIENT REPORTS PAIN 9/10, AWAITING FOR ADMITTING ORDERS.
[2019-05-01 16:30] VITALS: BP 121/68
[2019-05-01] MEDS ORDERED: ACETAMINOPHEN 325 MG TABLET PO PRN (16:30)
[2019-05-01] MEDS ORDERED: MAGNESIUM HYDROXIDE 30 ML LIQUID UDC PO PRN (16:30)
[2019-05-01] MEDS ORDERED: Z GUARD REMEDY PASTE 57 GM TUBE TOP PRN (16:30)
[2019-05-01] MEDS ORDERED: ONDANSETRON 4 MG/2 ML VIAL IV PRN (16:30)
[2019-05-01] MEDS: HYDROCODONE/APAP 5-325MG TABLET PO PRN ×2 (16:51→21:36)
--- NOTE | 2019-05-01 17:20 | NUR ---
PATIENT REFUSED TO HAVE PICTURES TAKEN OF WOUNDS.
[2019-05-01] MEDS: IV NS 1000 ML 1,000 ML IV PRN (17:34)
[2019-05-01] MEDS: MEROPENEM 0.5 G in IV NORMAL SALINE 50 ML IV SCH (17:34)
[2019-05-01] MEDS ORDERED: MEROPENEM 0.5 G in IV NORMAL SALINE 50 ML IV SCH (18:00)
[2019-05-01] MEDS ORDERED: HYDROMORPHONE 1 MG/1 ML DISP.SYRIN IV PRN (18:30)
--- NOTE | 2019-05-01 19:30 | NUR ---
PATIENT ALERT AND ORIENTED X 3-4. PATIENT C/O 10/10 GENERALIZED PAIN UPON ASSESSMENT. WILL MEDICATE WHEN AVAILABLE. SACRAL WOUND STATED BY PATIENT, BUT REFUSED NURSE TO ASSESS. PATIENT ROOM DOES NOT SMELL CLEAN, AND PATIENT REFUSES SHOWER. ON ANTIBIOTICS FOR SEPSIS. PATIENT IS DNR/DNI. ON TELEMETRY MONITORING SINUS RHYTHM. CALL LIGHT AND FREQUENTLY USED ITEMS WITHIN REACH. WILL CONTINUE TO MONITOR.
[2019-05-01 20:42] VITALS: BP 102/55
[2019-05-01] MEDS: ZOLPIDEM 5 MG TABLET PO PRN (21:36)
[2019-05-02 00:37] VITALS: BP 92/52
[2019-05-02] MEDS: MEROPENEM 0.5 G in IV NORMAL SALINE 50 ML IV SCH ×3 (01:38→18:47)
[2019-05-02 05:43] VITALS: BP 94/48
[2019-05-02] MEDS: HYDROCODONE/APAP 5-325MG TABLET PO PRN (05:45)
--- NOTE | 2019-05-02 06:41 | NUR ---
PATIENT STATES THAT HE VISITS A [facility] DAILY, AND THAT HE NEEDS HIS DOSE 90 MG DAILY. RELEASE OF INFORMATION FORM SENT TO [facility] SO THEY CAN SEND THEIR PRESCRIPTION INFORMATION TO [facility]. WILL CONTINUE TO MONITOR.
--- NOTE | 2019-05-02 06:43 | NUR ---
PATIENT TOOK OFF HIS BANDAGES ON HIS SACRUM. MULTIPLE ULCERS OF DIFFERNT STAGES NOTED UPON ASSESSMENT. PHOTOS TAKEN. WOUNDS CLEANED AND DRESS. WOUND CARE CONSULT INITIATED. WILL CONTINUE TO MONITOR.
[2019-05-02] MEDS ORDERED: HYDROMORPHONE 1 MG/1 ML DISP.SYRIN IV PRN (10:15)
[2019-05-02] MEDS: IV NS 1000 ML 1,000 ML IV PRN (10:26)
[2019-05-02] MEDS: PROTEIN SUPPLEMENT (PROSTAT) 30 ML LIQUID PO SCH ×3 (10:39→17:34)
[2019-05-02 12:00] VITALS: BP 107/57
[2019-05-02] MEDS: METHADONE HCL 10 MG TABLET PO SCH (12:28)
[2019-05-02] MEDS: METOCLOPRAMIDE HCL 10 MG/2 ML VIAL IV SCH ×2 (13:59→21:35)
[2019-05-02] MEDS: diphenhydrAMINE 50 MG/1 ML VIAL IV PRN (13:59)
--- NOTE | 2019-05-02 14:36 | NUR ---
WOUND CARE CONSULT: PT PRESENTS WITH MULTIPLE WOUNDS INCLUDING SACRAL, RT HIP, BILATERAL BUTTOCKS EXTENDING TO PERINEUM AND RT LATERAL KNEE SCAR, ALL PRESENT ON ADMISSION. CALLUSES NOTED TO FEET. RECOMMEND SURGICAL CONSULT. DR LITO SHAFER NOTIFIED OF CONSULT REQUEST. RECOMMENDATIONS MADE FOR SKIN PROTECTION AND WOUND CARE. DISCUSSED WITH NURSING STAFF. PT HAS COLOSTOMY AND UROSTOMY BUT URINE NOTED ON DRAW SHEET/UNDERPAD. WILL SEE PRN. VIZCAINO IN AGREEMENT WITH PLAN OF CARE. Addendum: 05/02/19 at 1439 by BUDDY MCGINNIS RN Amended: Links added.
[2019-05-02] MEDS: SODIUM HYPOCHLORITE 0.125% 473 ML BOTTLE TP SCH (14:45)
[2019-05-02 16:20] VITALS: BP 103/61
[2019-05-02] MEDS: HYDROMORPHONE 1 MG/1 ML DISP.SYRIN IV PRN ×2 (17:34→21:36)
--- NOTE | 2019-05-02 19:00 | NUR ---
pt. resting in bed comfortably. Hospitalist saw pt. today as well as wound care nurse. Hospitalist aware of methadone and wanted to continue order for dilaudid and benadryl given as needed to pt. Wound care nurse saw pt. Pt. refused dakins solution as he wanted to eat and just got his wound dressings changed. Pt. has IV in r ac 20 gauge intact patent running prescribed fluids. Good po intake. Pt. changed colostomy bag. Safety measures in place. call light withn reach. will endorse to pm nurse
[2019-05-02 20:25] VITALS: BP 95/56
--- NOTE | 2019-05-02 21:06 | NUR ---
PATIENT HAS ELEVATED TEMP 101.1 ORAL, COOLING MEASURE GIVEN, NOTIFY NERA STAGING TECHNICIAN REGARDING THE TEMP WITH ORDER.
[2019-05-02] MEDS ORDERED: LINEZOLID 600 MG TABLET PO ONE (21:15)
[2019-05-02] MEDS: ZOLPIDEM 5 MG TABLET PO PRN (21:34)
[2019-05-02] MEDS: METRONIDAZOLE 500 MG TABLET PO SCH (21:35)
--- NOTE | 2019-05-02 23:00 | NUR ---
PATIENT IS HARD STICK UNABLE TO COLLECT BLOOD SPECIMEN FOR BLOOD CULTURE, PATIENT HAD BLOOD CULTURE YESTERDAY, WILL WAIT FOR THE RESULT, NOTIFY YVAN GONZALEZ.
[2019-05-03] VITALS: BP 116/60
[2019-05-03] MEDS: MEROPENEM 0.5 G in IV NORMAL SALINE 50 ML IV SCH ×3 (02:48→19:34)
[2019-05-03] MEDS: HYDROMORPHONE 1 MG/1 ML DISP.SYRIN IV PRN ×4 (02:57→22:11)
[2019-05-03] MEDS: diphenhydrAMINE 50 MG/1 ML VIAL IV PRN ×3 (02:58→17:13)
[2019-05-03] MEDS: IV NS 1000 ML 1,000 ML IV PRN (03:00)
[2019-05-03 05:58] VITALS: BP 109/53
[2019-05-03] MEDS: METOCLOPRAMIDE HCL 10 MG/2 ML VIAL IV SCH ×3 (06:32→21:46)
[2019-05-03] MEDS: METRONIDAZOLE 500 MG TABLET PO SCH ×3 (06:32→22:01)
--- NOTE | 2019-05-03 07:30 | NUR ---
Patient calm and comfortable upon initial assessment ; Patient resting in bed patient will continue to be monitored .
[2019-05-03] MEDS: PROTEIN SUPPLEMENT (PROSTAT) 30 ML LIQUID PO SCH ×3 (08:36→17:14)
[2019-05-03] MEDS: SODIUM HYPOCHLORITE 0.125% 473 ML BOTTLE TP SCH (08:37)
[2019-05-03] MEDS: METHADONE HCL 10 MG TABLET PO SCH (08:37)
[2019-05-03] MEDS ORDERED: LINEZOLID 600 MG TABLET PO SCH (09:00)
[2019-05-03 11:53] VITALS: BP 110/50
[2019-05-03] MEDS ORDERED: CLINDAMYCIN HCL 300 MG CAPSULE PO SCH (12:00)
[2019-05-03] MEDS ORDERED: CLINDAMYCIN HCL 150 MG CAPSULE PO SCH (15:00)
[2019-05-03 16:15] VITALS: BP 114/57
[2019-05-03] MEDS: VANCOMYCIN FOR PO/GT/NG USE PO SCH (18:56)
[2019-05-03 20:05] VITALS: BP 114/50
--- NOTE | 2019-05-03 20:08 | NUR ---
Patient calm and compliant through out shift ; patient will continue to monitored. Addendum: 05/03/19 at 2014 by CHARLES BRADFORD RN AMEND
--- NOTE | 2019-05-03 20:10 | NUR ---
Patient medication compliant through out shift; MD Request midline for better iv access ; midline nurse tried multiple times and express bifurcation during attempts and started a ultrasound guided peripheral line on the right upper arm. Patient positive for cdiff; md notified and placed orders for vanco po ; patient medication compliant; patient pain managed with prn pain medication
[2019-05-03] MEDS: ZOLPIDEM 5 MG TABLET PO PRN (22:34)
[2019-05-03] MEDS ORDERED: CEFTRIAXONE /D5W 50ML IVPB **ER PYXIS IV ONE (22:47)
--- NOTE | 2019-05-03 23:00 | NUR ---
dr. jesu richardson assessed and aware of patients nephrostomy line leaking. no new orders.
[2019-05-03] MEDS: CEFTRIAXONE 1 G in IV DEXTROSE 5% 50 ML IV SCH (23:56)
[2019-05-04] VITALS (11 sets, daily range): BP systolic 101–115; BP diastolic 50–63
[2019-05-04] MEDS: diphenhydrAMINE 50 MG/1 ML VIAL IV PRN ×4 (02:37→23:42)
[2019-05-04] MEDS: HYDROMORPHONE 1 MG/1 ML DISP.SYRIN IV PRN ×6 (02:37→23:07)
[2019-05-04] MEDS: IV NS 1000 ML 1,000 ML IV PRN ×2 (02:38→15:27)
[2019-05-04] MEDS: METOCLOPRAMIDE HCL 10 MG/2 ML VIAL IV SCH ×3 (05:18→21:11)
[2019-05-04] MEDS: METRONIDAZOLE 500 MG TABLET PO SCH ×3 (05:18→21:11)
[2019-05-04] MEDS: VANCOMYCIN FOR PO/GT/NG USE PO SCH ×5 (05:18→23:04)
--- NOTE | 2019-05-04 05:30 | NUR ---
patient received in bed watching tv. no signs of acute distress and v/s stable throughout shift. low grade fever at beginning of shift. re-checked after 1 hour and afebrile at that time and throughout shift. safety and comfort measures provided. colostomy bag changed x1. Dilaudid administered x2. Ambien administered x1. tolerated well. will continue to monitor and endorse care accordingly. Addendum: 05/04/19 at 0639 by CLAUDIA HEREDIA RN total Dilaudid administered x3. tolerated well.
--- NOTE | 2019-05-04 08:00 | NUR ---
Received patient awake in bed. AAOx4. No s/s of acute distress. No SOB noted. Complaining of generalized pain; will medicate appropriately. Safety measures implemented. Will continue to monitor.
[2019-05-04] MEDS: PROTEIN SUPPLEMENT (PROSTAT) 30 ML LIQUID PO SCH ×3 (08:18→17:00)
[2019-05-04] MEDS: METHADONE HCL 10 MG TABLET PO SCH (08:19)
[2019-05-04] MEDS: SODIUM HYPOCHLORITE 0.125% 473 ML BOTTLE TP SCH (08:19)
[2019-05-04 08:35] LABS: BASOPHILS % (AUTO) 0.1 % (0.0-2.0)
[2019-05-04 08:38] LABS: EOSINOPHILS % (AUTO) 0.2 % (0.0-7.0); LYMPHOCYTES # (AUTO) 1.5 K/uL (20.0-40.0); LYMPHOCYTES % (AUTO) 10.9 % (20.5-51.5); MEAN CORPUSCULAR HEMOGLOBIN 22.4 uug (23.8-33.4); MEAN CORPUSCULAR HGB CONC 31 g/dL (32.5-36.3); MEAN CORPUSCULAR VOLUME 72.7 fL (73.0-96.2); MONOCYTES % (AUTO) 7.3 % (0.0-11.0); NEUTROPHILS # (AUTO) 11.4 K/uL (1.8-8.9); NEUTROPHILS % (AUTO) 81.5 % (38.5-71.5); PLATELET COUNT (AUTO) 633 K/uL (152-348)
[2019-05-04 08:40] LABS: CARBON DIOXIDE 25 mmol/L (21-32); CHLORIDE 107 mmol/L (98-107); CREATININE 0.6 mg/dL (0.6-1.3); GLUCOSE 75 mg/dL (74-106); PHOSPHOROUS 2.9 mg/dL (2.5-4.9); POTASSIUM 3.1 mmol/L (3.5-5.1); UREA NITROGEN, BLOOD 10 mg/dL (7-18)
[2019-05-04 08:45] LABS: MAGNESIUM 1.1 mg/dL (1.8-2.4)
[2019-05-04 08:46] LABS: RED BLOOD CELL COUNT(AUTO) 2.26 MIL/uL (4.06-5.63)
[2019-05-04 08:47] LABS: HEMOGLOBIN 5.1 g/dL (12.5-16.3)
[2019-05-04 08:48] LABS: HEMATOCRIT 16.5 % (36.7-47.1)
[2019-05-04 09:15] LABS: BAND % (MANUAL) 4 % (0-10); LYMPHOCYTES % (MANUAL) 14 % (20-40); MONOCYTES % (MANUAL) 9 % (2-10); NEUTROPHILS % (MANUAL) 73 % (42-75)
[2019-05-04] MEDS ORDERED: POTASSIUM CHLORIDE 20 MEQ TAB.PRT.SR PO ONE (11:30)
[2019-05-04] MEDS: MAGNESIUM SULFATE/D5W 100 ML IV SCH ×4 (12:31→20:00)
--- NOTE | 2019-05-04 19:30 | NUR ---
RECEIVED PT AWAKE, ALERT AND ORIENTEDX4. PT IN NO ACUTE DISTRESS. IV INTACT. SAFETY AND COMFORT PROVIDED. WILL CONTINUE TO MONITOR.
[2019-05-04] MEDS: CEFTRIAXONE 1 G in IV DEXTROSE 5% 50 ML IV SCH (21:11)
[2019-05-05] VITALS (9 sets, daily range): BP systolic 100–122; BP diastolic 47–64
--- NOTE | 2019-05-05 02:29 | NUR ---
PT FINISHED HIS BLOOD TRANSFUSION. PT IN NO ACUTE DISTRESS. NO SIDE EFFECTS. SAFETY AND COMFORT PROVIDED. WILL CONTINUE TO MONITOR.
[2019-05-05] MEDS: HYDROMORPHONE 1 MG/1 ML DISP.SYRIN IV PRN ×4 (04:47→20:26)
[2019-05-05] MEDS: METOCLOPRAMIDE HCL 10 MG/2 ML VIAL IV SCH ×3 (05:52→21:24)
[2019-05-05] MEDS: METRONIDAZOLE 500 MG TABLET PO SCH ×3 (05:52→21:24)
[2019-05-05] MEDS: VANCOMYCIN FOR PO/GT/NG USE PO SCH ×4 (05:52→23:05)
--- NOTE | 2019-05-05 06:22 | NUR ---
PT SLEPT INTERMITTENTLY. PT SHOWS NO SIGNS OF ACUTE DISTRESS. IV INTACT. PRESCRIBED MEDICATION GIVEN AND PT TOLERATED IT WELL. PT GIVEN DILAUDID AT 2307H AND 0447H FOR 8/10 GENERALIZED PAIN. PT TOLERATED IT WELL. SAFETY AND COMFORT PROVIDED. WILL ENDORSED TO INCOMING NURSE FOR CONTINUITY OF CARE
[2019-05-05] MEDS: PROTEIN SUPPLEMENT (PROSTAT) 30 ML LIQUID PO SCH ×3 (08:25→17:22)
[2019-05-05] MEDS: METHADONE HCL 10 MG TABLET PO SCH (08:31)
[2019-05-05] MEDS: SODIUM HYPOCHLORITE 0.125% 473 ML BOTTLE TP SCH (08:38)
[2019-05-05 10:59] LABS: BASOPHILS % (AUTO) 0.2 % (0.0-2.0); EOSINOPHILS % (AUTO) 0.1 % (0.0-7.0); HEMATOCRIT 25.8 % (36.7-47.1); HEMOGLOBIN 7.8 g/dL (12.5-16.3); LYMPHOCYTES # (AUTO) 1.5 K/uL (20.0-40.0); MEAN CORPUSCULAR HGB CONC 30 g/dL (32.5-36.3); MONOCYTES # (AUTO) 0.7 K/uL (2.0-10.0); MONOCYTES % (AUTO) 5.2 % (0.0-11.0); NEUTROPHILS # (AUTO) 11.3 K/uL (1.8-8.9); NEUTROPHILS % (AUTO) 83.5 % (38.5-71.5); PLATELET COUNT (AUTO) 683 K/uL (152-348); RED BLOOD CELL COUNT(AUTO) 3.39 MIL/uL (4.06-5.63); WHITE BLOOD COUNT (AUTO) 13.5 K/uL (3.6-10.2)
[2019-05-05 11:10] LABS: CARBON DIOXIDE 26 mmol/L (21-32); CHLORIDE 104 mmol/L (98-107); CREATININE 0.6 mg/dL (0.6-1.3); GLUCOSE 78 mg/dL (74-106); POTASSIUM 3.4 mmol/L (3.5-5.1); UREA NITROGEN, BLOOD 6 mg/dL (7-18)
[2019-05-05] MEDS ORDERED: POTASSIUM CHLORIDE 20 MEQ TAB.PRT.SR PO ONE (12:45)
[2019-05-05 13:43] LABS: MAGNESIUM 1.8 mg/dL (1.8-2.4)
[2019-05-05] MEDS: diphenhydrAMINE 50 MG/1 ML VIAL IV PRN ×2 (14:18→20:40)
[2019-05-05] MEDS: IV NS 1000 ML 1,000 ML IV PRN (15:04)
--- NOTE | 2019-05-05 18:12 | NUR ---
Patient in bed with HOB elevated watching TV, no c/o pain noted at this time and no SOB noted, kept clean and dry at all times. IV intact and patent with IV fluid running at 100 ml/hr with NS. Treatment done. Safety and comfort provided. Bed in low position, side rails up x2 and bed alarm. Will continue to monitor.
--- NOTE | 2019-05-05 19:00 | NUR ---
PATIENT ALERT ORIENTED, NO SOB NO CHEST PAIN, CONT ON PAIN MANAGEMENT DUE TO BACK PAIN, CONT IV HYDRATION AND IV ANTIBIOTIC FOR MULTIPLE INFECTION, ISOLATION DUE CDIFF, GOOD HAND WASHING OBSERVED, CONT TO MONITOR.
--- NOTE | 2019-05-05 21:15 | NUR ---
PATIENT BLOOD CULTURE DONE ON 05/01/2019 RESULT ANAEROBIC GRAM + COCCI IN PAIRS AND CHAINS, NOTIFY YVAN GONZALEZ.
[2019-05-05] MEDS: CEFTRIAXONE 1 G in IV DEXTROSE 5% 50 ML IV SCH (22:52)
[2019-05-06] MEDS: IV NS 1000 ML 1,000 ML IV PRN ×2 (01:32→11:00)
[2019-05-06] MEDS: ZOLPIDEM 5 MG TABLET PO PRN ×2 (02:49→21:52)
[2019-05-06 04:10] VITALS: BP 105/48
[2019-05-06] MEDS: VANCOMYCIN FOR PO/GT/NG USE PO SCH ×4 (05:01→23:44)
[2019-05-06] MEDS: diphenhydrAMINE 50 MG/1 ML VIAL IV PRN ×3 (05:01→18:16)
[2019-05-06] MEDS: METOCLOPRAMIDE HCL 10 MG/2 ML VIAL IV SCH ×3 (05:01→21:38)
[2019-05-06] MEDS: HYDROMORPHONE 1 MG/1 ML DISP.SYRIN IV PRN ×4 (05:03→23:44)
[2019-05-06] MEDS: METRONIDAZOLE 500 MG TABLET PO SCH ×3 (05:10→21:38)
--- NOTE | 2019-05-06 06:37 | NUR ---
PATIENT ALERT ORIENTED, NO SOB NO CHEST PAIN, CONT ON PAIN MANAGEMENT. PATIENT REMAIN IN CONTACT ISOLATION C DIFF GOOD HANDWASHING OBSERVED. MULTIPLE WOUND DRESSING INTACT, UROSTOMY DRAINING YELLOW COLOR URINE IN MODERATE AMOUNT, COLOSTOMY BAG DRAINING WITH BROWNISH COLOR FECES IN MODERATE AMOUNT. PATIENT PARTICIPATE WITH CHANGING ON OSTOMY BAGS. PATIENT BM IS SEMI FORM NOW, NO DIARRHEA NOTED. CONT TO MONITOR.
--- NOTE | 2019-05-06 09:00 | NUR ---
received pt. resting in bed alert oriented x4. Pt. has IV in R UA 20 gauge intact patent prescribed fluids. Pt. comfortable. Changed pt.'s wounds as ordered. safety measures in place. call light within reach. will continue to monitor pt.
[2019-05-06] MEDS: METHADONE HCL 10 MG TABLET PO SCH (09:11)
[2019-05-06] MEDS: PROTEIN SUPPLEMENT (PROSTAT) 30 ML LIQUID PO SCH ×3 (09:11→18:14)
[2019-05-06] MEDS: SODIUM HYPOCHLORITE 0.125% 473 ML BOTTLE TP SCH (09:12)
--- NOTE | 2019-05-06 11:00 | NUR ---
Provided pt. with dilaudid at 11 AM. Scanned the dilaudid and gave to pt. When rechecking emar dilaudid did not save. called pharmacy. pharmacy aware. Administer scheduled dilaudid on computer EMAR.
[2019-05-06 12:04] VITALS: BP 106/57
[2019-05-06 15:20] VITALS: BP 105/53
[2019-05-06 19:46] VITALS: BP 113/63
--- NOTE | 2019-05-06 20:00 | NUR ---
Patient received into care, sitting up in bed, talking on telephone. Patient is alert/oriented x3 and has no complaints of pain or discomfort at this time. All safety and fall precaution measures are in place. Call light and personal items are within reach at all times. Will continue to monitor and assess.
[2019-05-06] MEDS: CEFTRIAXONE 1 G in IV DEXTROSE 5% 50 ML IV SCH (21:38)
[2019-05-06] MEDS ORDERED: DOXYCYCLINE HYCLATE 100 MG INJ IV ONE (21:54)
[2019-05-06] MEDS: DOXYCYCLINE HYCLATE IV 100 MG in IV DEXTROSE 5% 100 ML IV SCH (22:39)
[2019-05-07] MEDS: diphenhydrAMINE 50 MG/1 ML VIAL IV PRN ×2 (02:56→16:51)
--- NOTE | 2019-05-07 03:40 | NUR ---
Patient is requesting that IV NS not be restarted because he said his right upper arm hurts. Nurse explained risks/benefits three time, but patient still refused. IV NS on IV pump turned off.
[2019-05-07] MEDS: IV NS 1000 ML 1,000 ML IV PRN (03:46)
[2019-05-07] MEDS: VANCOMYCIN FOR PO/GT/NG USE PO SCH ×4 (05:15→23:51)
[2019-05-07] MEDS: METRONIDAZOLE 500 MG TABLET PO SCH ×3 (05:15→21:36)
[2019-05-07 05:18] VITALS: BP 111/67
[2019-05-07] MEDS: METOCLOPRAMIDE HCL 10 MG/2 ML VIAL IV SCH ×3 (05:18→21:40)
--- NOTE | 2019-05-07 05:18 | NUR ---
Patient refused prescribed Reglan 10mg (2ml). Nurse explained risks/benefits three times but patient still refused.
--- NOTE | 2019-05-07 06:00 | NUR ---
Patient slept intermittently throughout night with complaints of pain addressed with prescribed analgesics, which patient tolerated well with no adverse side effects noted or observed by nurse or verbalized by patient. Prescribed antibiotics were provided as ordered and tolerated well by patient with no adverse side effects verbalized by patient or noted/observed by nurse. Patient refused further IV fluids 0340h, due to complaints of of right upper arm pain at IV site. Nurse explained risks/benefits times three but patient still refused. All safety and fall precaution measures remain in place. Call light and personal items remain with reach at all times.
[2019-05-07] MEDS: PROTEIN SUPPLEMENT (PROSTAT) 30 ML LIQUID PO SCH ×3 (08:26→16:50)
[2019-05-07] MEDS: SODIUM HYPOCHLORITE 0.125% 473 ML BOTTLE TP SCH (08:38)
[2019-05-07] MEDS: METHADONE HCL 10 MG TABLET PO SCH (08:38)
[2019-05-07] MEDS ORDERED: METHADONE HCL 10 MG TABLET PO STA (09:01)
[2019-05-07] MEDS: DOXYCYCLINE HYCLATE IV 100 MG in IV DEXTROSE 5% 100 ML IV SCH ×2 (09:59→21:16)
[2019-05-07 11:11] VITALS: BP 112/60
[2019-05-07 15:09] VITALS: BP 107/53
[2019-05-07] MEDS: HYDROMORPHONE 1 MG/1 ML DISP.SYRIN IV PRN (16:51)
--- NOTE | 2019-05-07 19:42 | NUR ---
Patient received into care, sitting up in bed, watching television. Patient is alert/oriented x3 and has no complaints of pain or discomfort at this time. All safety and fall precaution measures are in place. Call light and personal items are within reach at all times. Will continue to monitor and assess.
[2019-05-07 19:45] VITALS: BP 116/57
[2019-05-07] MEDS: ZOLPIDEM 5 MG TABLET PO PRN (21:37)
--- NOTE | 2019-05-07 21:37 | NUR ---
Patient refused prescribed Reglan 10mg (2mL). Explained risks/benefits three times and patient still refused.
[2019-05-07] MEDS: CEFTRIAXONE 1 G in IV DEXTROSE 5% 50 ML IV SCH (22:32)
--- NOTE | 2019-05-07 23:51 | NUR ---
Patient refused prescribed PO Vancomycin 500 mg oral suspension stating that he wants it "after breakfast." Explained risks/benefits three times, patient still refused.
[2019-05-08] MEDS: diphenhydrAMINE 50 MG/1 ML VIAL IV PRN ×3 (03:29→19:26)
[2019-05-08] MEDS: HYDROMORPHONE 1 MG/1 ML DISP.SYRIN IV PRN ×3 (04:50→19:26)
[2019-05-08] MEDS: METRONIDAZOLE 500 MG TABLET PO SCH ×3 (05:15→21:27)
[2019-05-08] MEDS: VANCOMYCIN FOR PO/GT/NG USE PO SCH ×3 (05:15→18:50)
[2019-05-08] MEDS: METOCLOPRAMIDE HCL 10 MG/2 ML VIAL IV SCH ×4 (05:19→21:35)
--- NOTE | 2019-05-08 05:19 | NUR ---
Patient refused Reglan 10mg (2mL) via IV. Nurse explained risks/benefits three times, but patient still refused.
[2019-05-08 05:20] VITALS: BP 112/40
--- NOTE | 2019-05-08 06:35 | NUR ---
Patient slept intermittently throughout night this shift. Patient refused 2200h and 0600h prescribed Reglan, as well as, 0000h prescribed Vanco PO. Patient was compliant with all other medications, including 0600h Vanco PO. Complaint of insomnia was addressed with prescribed ambien and one complaint of pain which was addressed with prescribed analgesics. All medications that patient was given were tolerated well, with no adverse side effects verbalized by patient or noted/observed by nurse. Patient has had multiple problems with his urostomy collection pouch leaking, with nursing care provided to make patient dry, warm, and comfortable. VS have been WNL and patient remains stable. Call light and personal items remain within reach at all times. All safety and fall precautions remain within reach.
[2019-05-08] MEDS: PROTEIN SUPPLEMENT (PROSTAT) 30 ML LIQUID PO SCH ×3 (08:23→17:33)
[2019-05-08] MEDS: METHADONE HCL 10 MG TABLET PO SCH (08:24)
[2019-05-08] MEDS: DOXYCYCLINE HYCLATE IV 100 MG in IV DEXTROSE 5% 100 ML IV SCH ×2 (08:25→20:24)
[2019-05-08] MEDS: SODIUM HYPOCHLORITE 0.125% 473 ML BOTTLE TP SCH (08:45)
[2019-05-08 11:12] VITALS: BP 113/62
[2019-05-08 15:23] VITALS: BP 122/61
[2019-05-08] MEDS: IV NS 1000 ML 1,000 ML IV PRN (17:33)
[2019-05-08 20:36] VITALS: BP 107/54
[2019-05-08] MEDS: CEFTRIAXONE 1 G in IV DEXTROSE 5% 50 ML IV SCH (21:27)
--- NOTE | 2019-05-08 22:30 | NUR ---
Patient refused his Reglan 10mg IV. Explained risks and benefits
[2019-05-09] MEDS: VANCOMYCIN FOR PO/GT/NG USE PO SCH ×2 (00:14→06:08)
[2019-05-09] MEDS: diphenhydrAMINE 50 MG/1 ML VIAL IV PRN (01:44)
[2019-05-09] MEDS: HYDROMORPHONE 1 MG/1 ML DISP.SYRIN IV PRN (01:59)
--- NOTE | 2019-05-09 02:00 | NUR ---
Wound care done and dressing on sacral area changed. Patient tolerated well
[2019-05-09 04:45] VITALS: BP 94/61
[2019-05-09] MEDS: METOCLOPRAMIDE HCL 10 MG/2 ML VIAL IV SCH (06:00)
[2019-05-09] MEDS: METRONIDAZOLE 500 MG TABLET PO SCH (06:08)
--- NOTE | 2019-05-09 06:59 | NUR ---
Patient refused again his Reglan 10mg IV, risks and benefits explained. Patient requesting to be discharged this morning around 8am. All needs attended. Will endorse accordingly
[2019-05-09] MEDS: IV NS 1000 ML 1,000 ML IV PRN (07:06)
--- NOTE | 2019-05-09 07:30 | NUR ---
Patient in bed upon initial assessment stating he must go home if not discharged he wants to go AMA ; patient educated that blood culture results pending . Patient with stable vital signs and will continue to be monitored.
[2019-05-09] MEDS: DOXYCYCLINE HYCLATE IV 100 MG in IV DEXTROSE 5% 100 ML IV SCH (08:45)
[2019-05-09] MEDS: PROTEIN SUPPLEMENT (PROSTAT) 30 ML LIQUID PO SCH (08:45)
[2019-05-09] MEDS: METHADONE HCL 10 MG TABLET PO SCH (08:45)
[2019-05-09] MEDS: SODIUM HYPOCHLORITE 0.125% 473 ML BOTTLE TP SCH (08:46)
--- NOTE | 2019-05-09 12:00 | NUR ---
Patient requested to leave AMA ; Patient explained that Casper RUSSO MD and attending LITO are recommending he stay until aerobic blood cultures as results will yield appropriate antibiotic for infection; patient stated he wanted to leave AMA regardless ; KARAN VIZCAINO gave orders that patient must leave on Flagyl po x7 days as patient positive for cdiff, patient ; Patient signed ama consent and educated on flagyl prescription.; Case management and director social service contacted aps for self neglect and potential concern over welfare of children ;team will follow on issue. Patient other nelson in stable condition with stable vital signs with no signs of distress.
== END 2019-05-09 11:45 | disposition left against medical advice (07) | DRG 710 ==
LOC: ER 10:26 → TELE3 15:42 → MEDSURG3 05-02 21:26
PROVIDERS: ADMIT Nurse Practitioner Acute Care; ATTEND Internal Medicine
PROC: 30233N1 Transfusion of Nonautologous Red Blood Cells into Peripheral Vein, Percutaneous Approach (ICD-10-PCS; principal; 2019-05-04)
PROC: 0QB30ZZ Excision of Left Pelvic Bone, Open Approach (ICD-10-PCS; 2019-05-05)
PROC: 0QB10ZZ Excision of Sacrum, Open Approach (ICD-10-PCS; 2019-05-05)
PROC: 05HA33Z Insertion of Infusion Device into Left Brachial Vein, Percutaneous Approach (ICD-10-PCS; 2019-05-07)
DX: A41.9 Sepsis, unspecified organism (principal); E43 Unspecified severe protein-calorie malnutrition; L89.314 Pressure ulcer of right buttock, stage 4; L89.324 Pressure ulcer of left buttock, stage 4; L89.224 Pressure ulcer of left hip, stage 4; A04.72 Enterocolitis due to Clostridium difficile, not specified as recurrent; E87.2 Acidosis; D68.59 Other primary thrombophilia; G82.20 Paraplegia, unspecified; M86.69 Other chronic osteomyelitis, multiple sites; Z93.6 Other artificial openings of urinary tract status; G89.4 Chronic pain syndrome; N39.0 Urinary tract infection, site not specified; T14.8XXS Other injury of unspecified body region, sequela; B95.1 Streptococcus, group B, as the cause of diseases classified elsewhere; Z68.1 Body mass index [BMI] 19.9 or less, adult; Z93.3 Colostomy status; F32.9 Major depressive disorder, single episode, unspecified; G47.00 Insomnia, unspecified; F41.9 Anxiety disorder, unspecified; K80.20 Calculus of gallbladder without cholecystitis without obstruction; N31.9 Neuromuscular dysfunction of bladder, unspecified; Z91.19 Patient's noncompliance with other medical treatment and regimen; Z99.3 Dependence on wheelchair; Z87.440 Personal history of urinary (tract) infections; Z87.01 Personal history of pneumonia (recurrent); Z82.49 Family history of ischemic heart disease and other diseases of the circulatory system; Z83.3 Family history of diabetes mellitus; Z90.49 Acquired absence of other specified parts of digestive tract; E83.51 Hypocalcemia; N26.1 Atrophy of kidney (terminal); D53.9 Nutritional anemia, unspecified; Z95.828 Presence of other vascular implants and grafts
CPT/HCPCS: 36415; 70030-TC; 70450; 71045; 71260; 72125; 83605; 83735; 84100; 85025; 86850; 86900; 86901; 86920; 87040; 87070; 87077; 87086; 93005; A4217; A4663; G0378; J0696; J1170; J1200; J2185; J2405; J2543; J2765; J3370; J3475; J3490; J7030; J7050; J7060; P9016-BL; P9021; Q0163; Q9967

== ENCOUNTER 2020-09-09 11:08 | Emergency (ER) | payer OTHER ==
[~2020-09-09] VITALS: Ht 180.3 cm; Wt 64.0 kg
[~2020-09-09 11:08] MED LIST changes: -MERO500V21 IV; +METH10TA2 PO; +PERCOCET PO
[2020-09-09 12:15] LABS: *BILIRUBIN,URIN NEGATIVE (NEGATIVE); *BLOOD, URINE 2+ (NEGATIVE); *CLARITY,URINE CLOUDY (CLEAR); *COLOR,URINE Brown (YELLOW); *KETONES,URINE NEGATIVE (NEGATIVE); *UROBILINOGEN,URINE 0.2 E.U./dl (NORMAL); LEUKOCYTE ESTERASE ,URINE 3+ (NEGATIVE); NITRITE, URINE NEGATIVE (NEGATIVE); PH,URINE 8.5 (5.0-8.0); UGLUCOSE NEGATIVE (NEGATIVE)
[2020-09-09 13:16] LABS: ALANINE AMINOTRANSFERASE 12 U/L (16-63); ALKALINE PHOSPHATASE 300 U/L (50-136); ASPARTATE AMINOTRANSFERASE 17 U/L (15-37); BILIRUBIN,TOTAL 0.3 mg/dL (0.2-1.0); CARBON DIOXIDE 27 mmol/L (21-32); CHLORIDE 109 mmol/L (98-107); CREATININE 0.6 mg/dL (0.6-1.3); GLUCOSE 71 mg/dL (74-106); POTASSIUM 3.5 mmol/L (3.5-5.1); TOTAL PROTEIN, SERUM 7.2 g/dL (6.4-8.2); UREA NITROGEN, BLOOD 12 mg/dL (7-18)
[2020-09-09 13:31] LABS: BILIRUBIN,DIRECT 0.1 mg/dL (0.0-0.2)
[2020-09-09 13:47] LABS: BASOPHILS % (AUTO) 0.2 % (0.0-2.0); EOSINOPHILS # (AUTO) 0.2 K/uL (0.0-0.7); HEMATOCRIT 29.7 % (36.7-47.1); HEMOGLOBIN 9.6 g/dL (12.5-16.3); LYMPHOCYTES # (AUTO) 1.6 K/uL (20.0-40.0); LYMPHOCYTES % (AUTO) 25.4 % (20.5-51.5); MEAN CORPUSCULAR HEMOGLOBIN 27.9 uug (23.8-33.4); MEAN CORPUSCULAR HGB CONC 32 g/dL (32.5-36.3); MEAN CORPUSCULAR VOLUME 86.6 fL (73.0-96.2); MONOCYTES # (AUTO) 0.6 K/uL (2.0-10.0); MONOCYTES % (AUTO) 9.5 % (0.0-11.0); NEUTROPHILS # (AUTO) 3.8 K/uL (1.8-8.9); NEUTROPHILS % (AUTO) 61.9 % (38.5-71.5); PLATELET COUNT (AUTO) 578 K/uL (152-348); RED BLOOD CELL COUNT(AUTO) 3.43 MIL/uL (4.06-5.63); WHITE BLOOD COUNT (AUTO) 6.1 K/uL (3.6-10.2)
[2020-09-09] MEDS ORDERED: CEFTRIAXONE 1 G VIAL IM ONE (14:15)
[2020-09-09] MEDS ORDERED: OXYCODONE/APAP 5-325 MG TABLET PO ONE (14:15)
[2020-09-09] MEDS ORDERED: CEPH500C2 PO (14:24)
[2020-09-09] MEDS ORDERED: DOCU250C14 PO (14:24)
[2020-09-09] MEDS ORDERED: HYDR-3980 PO (14:24)
[2020-09-09] MEDS ORDERED: LIDOCAINE HCL 1% 20 ML VIAL ONE (14:28)
[2020-09-09] MEDS ORDERED: HYDROCODONE/APAP 5-325MG TABLET ONE (14:28)
[2020-09-09] MEDS ORDERED: CEFTRIAXONE 1 G VIAL ONE (14:28)
[2020-09-09] MEDS ORDERED: OXYCODONE/APAP 5-325 MG TABLET ONE (14:30)
[2020-09-09 14:47] LABS: WBC,URINE 20-50 /HPF (0-3)
[2020-09-09 14:48] LABS: BACTERIA,URINE MODERATE /HPF (NONE SEEN); SQUAMOUS EPITHELIAL CELL,UR FEW /HPF (NONE SEEN)
--- NOTE | 2020-09-09 15:00 | NUR ---
Patient discharged to home in stable condition. Written and verbal after care instructions given. Patient verbalizes understanding of instructions. Stressed follow up or return to ER for worsening s/s.
[2020-09-09 15:29] VITALS: BP 121/66
== END 2020-09-09 15:00 | disposition home or self-care (01) ==
LOC: ER 11:08
DX: R10.9 Unspecified abdominal pain (principal); D64.9 Anemia, unspecified; N99.521 Infection of incontinent external stoma of urinary tract; N39.0 Urinary tract infection, site not specified; Z99.3 Dependence on wheelchair; Z93.3 Colostomy status; G89.4 Chronic pain syndrome; G82.20 Paraplegia, unspecified; T14.8XXS Other injury of unspecified body region, sequela; Z88.1 Allergy status to other antibiotic agents; R03.0 Elevated blood-pressure reading, without diagnosis of hypertension; J98.11 Atelectasis; K80.20 Calculus of gallbladder without cholecystitis without obstruction; N26.1 Atrophy of kidney (terminal); M25.452 Effusion, left hip; Z82.49 Family history of ischemic heart disease and other diseases of the circulatory system
CPT/HCPCS: 36415; 74176; 80048; 80076; 81001; 85025; 87077; 87086; 87186; 93971; 96372; 99285; J0696; J3490; A4663

== ENCOUNTER 2021-02-11 20:47 | Emergency (ER) | payer OTHER ==
[~2021-02-11] VITALS: Ht 180.3 cm; Wt 59.0 kg
[~2021-02-11 20:47] MED LIST changes: +CEPH500C2 PO; +DOCU250C14 PO; +HYDR-3980 PO; +METH-817 PO; -METH10TA2 PO
--- NOTE | 2021-02-11 20:50 | NUR ---
Pt brought straight back to ED[facility] via private ambulance accompanied by shuttlecock assembler Yair. Pt is in no acute distress. Pt AAOx4 with good color, temp and appearance. VSS, PE WNL for parapeligic with colostomy, Lt nephrostomy tube and urine leg bag, strong and reg pulses x2 ext. Pt's cc is multiple festering foot wounds on rt foot that are infested with maggots. Otherwise healthy individual
--- NOTE | 2021-02-11 21:05 | NUR ---
EDMD Dr. Westfall at pt bedside for eval. Ordered all wounds, as well as massive pressure ulcer on bilat buttox, to be exposed and cleansed with antiseptic soln and for maggots to be manually removed using foresepts and gauze.
--- NOTE | 2021-02-11 21:20 | NUR ---
Pts feet left to soak in dilute antiseptic soln of NS/Betadine/H2O2 for approx 20-30 min. Pt's feet extremely dirty and poorly cared for with large amt of dried, flaky skin, long, unkept toe nails and toe jam. After feet had been soaking for approx 20 min, scrubbed and exfoliated with large amt of 4x4 gauze. Soaking soln changed out and feet left to soak for another 20 min in fresh antiseptic soln some more due to the thick amt of dried skin that was now fluffing off. Feet and multiple wounds cleaned thuroughly to the best of my abilities. Large amt of maggots falling out of two deep, necrotic wounds on lateral antierior to posterior surface of dorsal side of Rt foot proximal to the Rt 5th digit. Thuroughly and meticulusly cleaned out necroctic wounds of most of the cluster of maggots that was embedded deep into wound. A few maggots left due to being too deep into wound to clean out, tool required to remove the rest of the escar and maggots. Marked improvement made in general appearance of bilat feet.
[2021-02-11] MEDS ORDERED: OXYCODONE/APAP 5-325 MG TABLET PO ONE (21:30)
[2021-02-11] MEDS ORDERED: CEFTRIAXONE 1 G VIAL IM ONE (21:30)
[2021-02-11] MEDS ORDERED: SULFAMETH/TRIMETH 800/160 MG TABLET PO ONE (21:30)
[2021-02-11 22:20] LABS: HEMATOCRIT 28.9 % (36.7-47.1); MEAN CORPUSCULAR HEMOGLOBIN 24.5 uug (23.8-33.4); MEAN CORPUSCULAR VOLUME 78.4 fL (73.0-96.2); PLATELET COUNT (AUTO) 894 K/uL (152-348)
--- NOTE | 2021-02-11 22:20 | NUR ---
EDMD Dr. Westfall asked for special forecepts to remove remaining maggots and tissue from wounds. Pt's feet are now clean, dry and maggot/escar free. Pt now placed on Rt lateral position per ED so as to visualize the severe/massive pressure wound on back side of pt. Wound fully exposed and cleansed and pressure irrigated with copius amts of NS/betadine/H2O2 soln approx 400cc. Wound scrubbed and any debrie removed from wound with wet 4x4s soaking in fresh antiseptic soln. EDMD Dr. Westfall called after wound on posterior surface was all ready and prepared to be visualized and assessed. LIZZY observed the massive wound spanning pts entire seat/buttox area and ordered bulky, wet to dry dressing on all visible wounds.
[2021-02-11 22:25] LABS: ALANINE AMINOTRANSFERASE 13 U/L (16-63); ALKALINE PHOSPHATASE 225 U/L (50-136); ASPARTATE AMINOTRANSFERASE 11 U/L (15-37); BILIRUBIN,DIRECT 0.2 mg/dL (0.0-0.2); BILIRUBIN,TOTAL 0.4 mg/dL (0.2-1.0); CARBON DIOXIDE 23 mmol/L (21-32); CHLORIDE 108 mmol/L (98-107); CREATININE 0.8 mg/dL (0.6-1.3); GLUCOSE 88 mg/dL (74-106); POTASSIUM 3.4 mmol/L (3.5-5.1); TOTAL PROTEIN, SERUM 8.5 g/dL (6.4-8.2); UREA NITROGEN, BLOOD 12 mg/dL (7-18)
--- NOTE | 2021-02-11 22:40 | NUR ---
All visible wounds present on both feet and legs cleansed and dressed using aseptic tech. Wounds dressed with adaptix, bulky 4x4 and wrapped with Kerlix, secured with tape and stockinett. Great care was taken to make sure dressings were not wrapped too tight and that one finger was able to fit between dressing and skin. Cap refill <3sec before and after application of dressing.
--- NOTE | 2021-02-11 22:50 | NUR ---
Ordered medication administered to pt without difficulty, pt tolerated well with no s/sx of reaction.
[2021-02-11] MEDS ORDERED: CEPH500T PO (22:54)
[2021-02-11] MEDS ORDERED: HYDR-3980 PO (22:54)
[2021-02-11] MEDS ORDERED: SULF1TAB48 PO (22:54)
[2021-02-11] MEDS ORDERED: ALPR1TAB2 PO (22:54)
[2021-02-11] MEDS ORDERED: SULFAMETH/TRIMETH 800/160 MG TABLET ONE (23:29)
[2021-02-11] MEDS ORDERED: CEFTRIAXONE 1 G VIAL ONE (23:30)
[2021-02-11] MEDS ORDERED: OXYCODONE/APAP 5-325 MG TABLET ONE (23:31)
--- NOTE | 2021-02-11 23:45 | NUR ---
Pt given DC instructions along with prescribtion and pertinent med info. Pt confirmed understanding of aftercare. Pt's VSS, AAOx4, oxygenating and perfusing well. Denies any severe pain and nausea. No s/sx of distress present. Pt placed in hospital wc and wheeled out to mothers SUV. Assisted pt with getting into mother's SUV from wc, also assisted by security.
[2021-02-12 02:42] VITALS: BP 116/64
== END 2021-02-11 23:45 | disposition home or self-care (01) ==
LOC: ER 20:47
DX: L89.512 Pressure ulcer of right ankle, stage 2 (principal); L89.619 Pressure ulcer of right heel, unspecified stage; B87.1 Wound myiasis; D53.9 Nutritional anemia, unspecified; G89.4 Chronic pain syndrome; Z86.718 Personal history of other venous thrombosis and embolism; Z99.3 Dependence on wheelchair; G82.20 Paraplegia, unspecified; T14.8XXS Other injury of unspecified body region, sequela; X95.9XXS Assault by unspecified firearm discharge, sequela; Z93.3 Colostomy status; Z95.828 Presence of other vascular implants and grafts; E46 Unspecified protein-calorie malnutrition; Z68.1 Body mass index [BMI] 19.9 or less, adult; L89.309 Pressure ulcer of unspecified buttock, unspecified stage; Z79.891 Long term (current) use of opiate analgesic; R79.1 Abnormal coagulation profile
CPT/HCPCS: 36415; 80048; 80076; 85025; 85730; 96372; 97597; 99284; J0696; A4217; A4663